=== PATIENT | female | born 1945 | race Caucasian/White ===

== ENCOUNTER 2023-04-04 16:07 | Inpatient (IN) | payer MEDICARE, SELFPAY ==
[2023-04-04] VITALS (41 sets, daily range): BP systolic 105–176; BP diastolic 59–110; PULSE 73–101; RESP 13–26; TEMP 36.6–37.1; O2SAT 59–97; BMI 28.5; BMI 28.2
--- NOTE | 2023-04-04 16:10 | XR_ITS ---
[place] [id number] Patient Name: MARK REYES MRN: [id number] date: 1945 Sex: F Assigned Patient Location: ER Current Patient Location: ED.MAIN Accession/Order Number: [id number] Exam Date: 04/04/2023 16:35 Report Date: 04/04/2023 17:10 At the request of: GINA STEVEN Procedure: XR chest 1V EXAM: XR chest 1V HISTORY: SOB COMPARISON: Chest x-rays 05/27/2015 TECHNIQUE: Portable chest FINDINGS: IMPRESSION: Diffuse alveolar infiltrates. Parenchymal vascular thickening cannot be excluded. No focal consolidation or infiltrate. No pneumothorax or pleural effusion. The heart is not enlarged. Elevation of the right humeral head within the glenoid suggesting a full-thickness rotator cuff tear. No acute osseous abnormality Electronically authenticated by: CARLOS ALBERTO CORRAL Date: 04/04/2023 17:10
--- NOTE | 2023-04-04 16:10 | ECG_ITS ---
[facility] Test Date: 2023-04-04 Pat Name: MARK REYES Department: Room: - Gender: Female Haz Tech: : 1945 Requested By: 1030 Order Number: [id number] Reading MD: NEY MILLER Measurements Intervals [place] Rate: 81 P: -95125 MT: -94183 QRS: -20 QRSD: 88 T: -38 QT: 388 QTc: 425 Interpretive Statements 69354 Atrial fibrillation with aberrant conduction, or ventricular premature complexes 77765 Twave abnormality, possible inferolateral ischemia or digitalis effect 9150 abnormal ECG Electronically Signed On 04-04-2023 19:38:18 EST by NEY MILLER
[2023-04-04 16:30] LABS: Basophils Percent Auto 0.2 % (0.2-2.0); Eosinophils Percent Auto 0.1 % (0.9-7.0); Hematocrit 43.2 % (36.0-48.0); Hemoglobin 14.4 g/dL (12.0-16.0); Immature Granulocytes Abs Auto 0.29 10^3/uL (0.00-0.03); Immature Granulocytes Pct Auto 1.5 % (0.0-0.5); Lymphocytes Absolute Auto 1.3 10^3/uL (1.2-3.8); Lymphocytes Percent Auto 6.9 % (20.5-60.0); Mean Corpuscular HGB Conc 33.3 g/dL (29.9-35.2); Mean Corpuscular Hemoglobin 30.1 pg (26.7-34.0); Mean Corpuscular Volume 90.2 fL (81.0-99.0); Mean Platelet Volume 10.1 fL (9.5-13.5); Monocytes Absolute Auto 0.9 10^3/uL (0.3-0.8); Monocytes Percent Auto 4.5 % (1.7-12.0); Neutrophils Absolute Auto 16.4 10^3/uL (1.4-6.5); Neutrophils Percent Auto 86.8 % (43.0-75.0); Platelet Count 300 10^3/uL (150-450); Red Blood Count 4.79 10^6/uL (4.20-5.40); Red Cell Distribution Width 13.8 % (11.0-15.0); White Blood Count 18.9 10^3/uL (4.0-11.0)
[2023-04-04] MEDS: METHYLPREDNISOLONE SOD SUCC PF 125 MG/2 ML VIAL IVP (16:35)
[2023-04-04 16:39] LABS: SARS-CoV-2 Ag POSITIVE (NEGATIVE)
[2023-04-04 17:24] LABS: Anion Gap 14.2; BUN Creatinine Ratio 26.6; Calcium 8.1 mg/dL (8.5-10.1); Carbon Dioxide 25.5 mmol/L (21.0-32.0); Chloride 100 mmol/L (98-107); Estimated GFR (African America >60 (>=60); Estimated GFR (Non-African Ame >60 (>=60); Glucose 91 mg/dL (74-106); Potassium 3.7 mmol/L (3.5-5.1); Sodium 136 mmol/L (136-145)
[2023-04-04 17:28] LABS: Troponin I High Sensitivity 68.2 pg/mL (4.0-51.3)
[2023-04-04] MEDS: FUROSEMIDE 40 MG/4 ML VIAL IVP (17:29)
--- NOTE | 2023-04-04 17:53 | ECG_ITS ---
[facility] Test Date: 2023-04-04 Pat Name: MARK REYES Department: Room: - Gender: Female Adapted Physical Education Aide: : 1945 Requested By: 1030 Order Number: [id number] Reading MD: NEY MILLER Measurements Intervals [place] Rate: 84 P: -40551 FL: -60494 QRS: -21 QRSD: 86 T: 224 QT: 336 QTc: 377 Interpretive Statements Atrial fibrillation [address] depression 4664 Twave abnormality, possible inferolateral ischemia 7202 Moderate left axis deviation 9150 abnormal ECG Electronically Signed On 04-04-2023 19:37:12 EST by NEY MILLER
[2023-04-04 18:05] LABS: Troponin I High Sensitivity 68.3 pg/mL (4.0-51.3)
--- NOTE | 2023-04-04 18:41 | ED_ITS ---
HPI - General Adult General Chief complaint: Shortness of Breath/Dyspnea Stated complaint: SOB/COVID POSITIVE Time Seen by Provider: 04/04/23 16:10 Source: patient Mode of arrival: Wheelchair Limitations: no limitations History of Present Illness HPI narrative: [age] female presents for shortness of breath. This seems to have developed over the last day. She has chronic obstructive pulmonary disease and is on home oxygen. One week ago today she was admitted at another hospital and had tested positive for coated. They kept her for three days and she was discharged home. She was doing well until the last twenty-four hours. She noticed that her O2 sat was decreasing so she came in here. No fever or productive cough. She has no personal history of congestive heart failure or atrial fibrillation. Related Data Home Medications Medication Instructions Recorded Confirmed amlodipine 10 mg tablet 10 mg PO DAILY 04/04/23 04/04/23 amoxicillin 875 mg-potassium 1 tab PO BID 04/04/23 04/04/23 clavulanate 125 mg tablet atorvastatin 40 mg tablet 20 mg PO DAILY 04/04/23 04/04/23 azithromycin 250 mg tablet 250 mg PO DAILY 04/04/23 04/04/23 clopidogrel 75 mg tablet 75 mg PO DAILY 04/04/23 04/04/23 fluticasone fur. 100 mcg-umeclid 1 inh inhalation Q24H 04/04/23 04/04/23 62.5 mcg-vilant 25 mcg inhalat.powder (Trelegy Ellipta) levalbuterol HCl 1.25 mg/3 mL 1.25 mg inhalation DAILY 04/04/23 04/04/23 solution for nebulization lisinopril 40 mg tablet 40 mg PO DAILY 04/04/23 04/04/23 prednisone 20 mg tablet 20 mg PO BID 04/04/23 04/04/23 sertraline 25 mg tablet 25 mg PO DAILY 04/04/23 04/04/23 Allergies Allergy/AdvReac Type Severity Reaction Status Date / Time acetaminophen [From [place]] Allergy Intermediate Verified 04/04/23 16:12 nitrofurantoin Allergy Intermediate Verified 04/04/23 16:12 [From Macrobid] pentazocine [From [place]] Allergy Intermediate Verified 04/04/23 16:12 Sulfa (Sulfonamide Allergy Intermediate Verified 04/04/23 16:12 Antibiotics) tetracycline Allergy Intermediate Verified 04/04/23 16:12 erythromycin base Allergy Mild Verified 04/04/23 16:12 sulfamethoxazole Allergy Mild Verified 04/04/23 16:12 [From Bactrim] trimethoprim [From Bactrim] Allergy Mild Verified 04/04/23 16:12 Review of Systems ROS Narrative A ten point review of systems is negative except as noted above. Exam Narrative Exam Narrative: Nurses note and vital signs reviewed and patient is not hypoxic. General: The patient is sitting upright and speaking in full sentences. She is not cyanotic. Skin: Warm, dry, no pallor noted. There is no rash noted.no cyanosis Head: Normocephalic, atraumatic Eye: Normal conjunctiva, no drainage Ears, Nose, Mouth, and Throat: oral mucosa is moist. Nares patent. Cardiovascular: irregularly irregular Respiratory: good air movement noted, no rales or rhonchi present Back: non-tender GI: no tenderness to palpation, no masses appreciated. No rebound, guarding, or rigidity noted. Musculoskeletal: The patient has no evidence of calf tenderness, no pitting natalia ma, symmetrical pulses noted bilaterally Neurological: A&O, normal speech Psychiatric: Cooperative Constitutional Vital Signs, click to edit/add: Last Vital Signs Temp 98.8 F 04/04/23 16:08 Pulse 78 04/04/23 17:45 Resp 17 04/04/23 17:45 BP 167/69 H 04/04/23 17:45 Pulse Ox 88 L 04/04/23 17:45 O2 Del Method Vapotherm 04/04/23 16:32 O2 Flow Rate 40 04/04/23 16:32 FiO2 90 04/04/23 16:32 Course Vital Signs Vital signs: Vital Signs Temperature 98.8 F 04/04/23 16:08 Pulse Rate 93 H 04/04/23 16:08 Respiratory Rate 26 H 04/04/23 16:08 Blood Pressure 137/59 04/04/23 16:08 Pulse Oximetry 59 L 04/04/23 16:08 Oxygen Delivery Method Nasal Cannula 04/04/23 16:08 Oxygen Delivery Flow Rate 3 04/04/23 16:08 Temperature 98.8 F 04/04/23 16:08 Pulse Rate 78 04/04/23 17:45 Respiratory Rate 17 04/04/23 17:45 Blood Pressure 167/69 H 04/04/23 17:45 Pulse Oximetry 88 L 04/04/23 17:45 Oxygen Delivery Method Vapotherm 04/04/23 16:32 Oxygen Delivery Flow Rate 40 04/04/23 16:32 Fraction of Inspired Oxygen 90 04/04/23 16:32 Medical Decision Making MDM Narrative Medical decision making narrative: chest x-ray is consistent with pulmonary edema. She is found to be in atrial fibrillation which appears to be new onset. The possibility that the foot Covid causes the atrial fibrillation which then caused the pulmonary edema was discussed with the patient. She was given IV Lasix. Her heart rate is well controlled and she is being admitted to the ICU. Her initial O2 sat was fifty- seven percent on room air. Interestingly, at that point she was not cyanotic and she was speaking in full sentences and was in no distress. Waveform on the monitor with that sat. after Lasix was given she was making good urine and her O2 sat went up to the lower ninety percent range. Differential Diagnosis Differential Diagnosis: pneumonia, congestive heart failure, pulmonary edema, pneumothorax Lab Data Lab results reviewed: Yes I reviewed the patient's lab results Labs: Lab Results 04/04/23 04/04/23 04/04/23 Range/Units 16:18 16:25 16:45 WBC 18.9 H (4.0-11.0) 10^3/uL RBC 4.79 (4.20-5.40) 10^6/uL Hgb 14.4 (12.0-16.0) g/dL Hct 43.2 (36.0-48.0) % MCV 90.2 (81.0-99.0) fL MCH 30.1 (26.7-34.0) pg MCHC 33.3 (29.9-35.2) g/dL RDW 13.8 (11.0-15.0) % Plt Count 300 (150-450) 10^3/uL MPV 10.1 (9.5-13.5) fL Neut % (Auto) 86.8 H (43.0-75.0) % Lymph % (Auto) 6.9 L (20.5-60.0) % [place] % (Auto) 4.5 (1.7-12.0) % Eos % (Auto) 0.1 L (0.9-7.0) % Baso % (Auto) 0.2 (0.2-2.0) % Neut # (Auto) 16.4 H (1.4-6.5) 10^3/uL Lymph # (Auto) 1.3 (1.2-3.8) 10^3/uL [place] # (Auto) 0.9 H (0.3-0.8) 10^3/uL Eos # (Auto) 0.0 (0.0-0.7) 10^3/uL Baso # (Auto) 0.0 (0.0-0.1) 10^3/uL Abs Immat Gran (auto) 0.29 H (0.00-0.03) 10^3/uL Imm/Tot Granulo (auto) 1.5 H (0.0-0.5) % Sodium 136 (136-145) mmol/L Potassium 3.7 (3.5-5.1) mmol/L Chloride 100 (98-107) mmol/L Carbon Dioxide 25.5 (21.0-32.0) mmol/L Anion Gap 14.2 BUN 21.0 H (7.0-18.0) mg/dL Creatinine 0.79 (0.55-1.02) mg/dL Est GFR ( Amer) >60 (>=60) Est GFR (Non-Af Amer) >60 (>=60) BUN/Creatinine Ratio 26.6 Glucose 91 (74-106) mg/dL Calcium 8.1 L (8.5-10.1) mg/dL Troponin I High Sens 68.2 H* (4.0-51.3) pg/mL NT-Pro-B Natriuret Pep 5059.0 H* (<=1800.0) pg/mL SARS-CoV-2 (PCR) Positive A (NEGATIVE) 04/04/23 Range/Units 17:43 WBC (4.0-11.0) 10^3/uL RBC (4.20-5.40) 10^6/uL Hgb (12.0-16.0) g/dL Hct (36.0-48.0) % MCV (81.0-99.0) fL MCH (26.7-34.0) pg MCHC (29.9-35.2) g/dL RDW (11.0-15.0) % Plt Count (150-450) 10^3/uL MPV (9.5-13.5) fL Neut % (Auto) (43.0-75.0) % Lymph % (Auto) (20.5-60.0) % [place] % (Auto) (1.7-12.0) % Eos % (Auto) (0.9-7.0) % Baso % (Auto) (0.2-2.0) % Neut # (Auto) (1.4-6.5) 10^3/uL Lymph # (Auto) (1.2-3.8) 10^3/uL [place] # (Auto) (0.3-0.8) 10^3/uL Eos # (Auto) (0.0-0.7) 10^3/uL Baso # (Auto) (0.0-0.1) 10^3/uL Abs Immat Gran (auto) (0.00-0.03) 10^3/uL Imm/Tot Granulo (auto) (0.0-0.5) % Sodium (136-145) mmol/L Potassium (3.5-5.1) mmol/L Chloride (98-107) mmol/L Carbon Dioxide (21.0-32.0) mmol/L Anion Gap BUN (7.0-18.0) mg/dL Creatinine (0.55-1.02) mg/dL Est GFR ( Amer) (>=60) Est GFR (Non-Af Amer) (>=60) BUN/Creatinine Ratio Glucose (74-106) mg/dL Calcium (8.5-10.1) mg/dL Troponin I High Sens 68.3 H* (4.0-51.3) pg/mL NT-Pro-B Natriuret Pep (<=1800.0) pg/mL SARS-CoV-2 (PCR) (NEGATIVE) Imaging Data chest x-ray : Radiologist's impression: Procedure: XR chest 1V EXAM: XR chest 1V HISTORY: SOB COMPARISON: Chest x-rays 05/27/2015 TECHNIQUE: Portable chest FINDINGS: IMPRESSION: Diffuse alveolar infiltrates. Parenchymal vascular thickening cannot be excluded. No focal consolidation or infiltrate. No pneumothorax or pleural effusion. The heart is not enlarged. Elevation of the right humeral head within the glenoid suggesting a full-thickness rotator cuff tear. No acute osseous abnormality Electronically authenticated by: CARLOS ALBERTO CORRAL Date: 04/04/2023 17:10 Critical Care Time Critical Care Time Total Critical Care Time: 60 Attestation: Due to the high probability of sudden and clinically significant deterioration in the patient's condition he/she required the highest level of my preparedness to intervene urgently I provided critical care time including documentation time, medication orders and management, reevaluation, vital sign assessment, ordering and reviewing of lab tests, ordering and reviewing of x-ray studies, and admission orders. Aggregate critical care time is 60 minutes including only time during which I was engaged in work directly related to his/her care and did not include time spent treating other patients simultaneously. Discharge Plan Discharge Chief Complaint: Shortness of Breath/Dyspnea Clinical Impression: Hypoxemia, Pulmonary edema, Atrial fibrillation, new onset Patient Disposition: Admitted As Inpatient Time of Disposition Decision: 18:45 Condition: Good Prescriptions / Home Meds: No Action lisinopril 40 mg tablet 40 mg PO DAILY clopidogrel 75 mg tablet 75 mg PO DAILY atorvastatin 40 mg tablet 20 mg PO DAILY sertraline 25 mg tablet 25 mg PO DAILY amlodipine 10 mg tablet 10 mg PO DAILY levalbuterol HCl 1.25 mg/3 mL solution for nebulization 1.25 mg INHALATION DAILY azithromycin 250 mg tablet 250 mg PO DAILY Trelegy Ellipta 100-62.5-25 mcg blister with device 1 inh INHALATION Q24H prednisone 20 mg tablet 20 mg PO BID amoxicillin-pot clavulanate 875-125 mg tablet 1 tab PO BID Referrals: TESHA RED [Primary Care Provider] - 1 week
[2023-04-04] MEDS: PANTOPRAZOLE SODIUM 40 MG VIAL IV (20:46)
[2023-04-04] MEDS: ENOXAPARIN SODIUM 40 MG/0.4 ML SYRINGE SUBQ (20:46)
--- NOTE | 2023-04-04 21:09 | W.PM.TELEPN ---
Progress Note: Subjective Subjective Interval history: Patient is a 77 old female with history of HTN, HLD, history of bilateral carotid stenosis s/p bilateral stent placement, left breast cancer s/p mastectomy, and depression who presents with complaint of progressively worsening dyspnea over the past 24 hours. Patient of note reports that she has had URI symptoms including intermittent low-grade fever, cough, and dyspnea for approximately 2 weeks therefore she went to [facility] on 03/28 where she was diagnosed with COVID. Patient reports that she was hospitalized there for 3 days and discharged home with Augmentin and steroids for which she has completed both yesterday and she also was discharged on home O2 of 3 L. She had not had any prior home O2 use prior to that hospitalization. Patient reports that she felt as though she was getting better but states that yesterday she had significantly worsened dyspnea. She reports minimal cough with blood-tinged sputum. Denies any fever or chills, no chest pain or palpitations, denies any dizziness, denies any nausea, vomiting, diarrhea. Given the severity of her symptoms, patient presented here to the ED. In the ED patient reportedly had an O2 sat of 57% on room air yet was able to speak in full sentences and no signs of confusion. Per ED physician, O2 sat was deemed accurate with good waveform. Patient has since been transitioned to Vapotherm at 40 L, 90% FiO2 with O2 sat low 90s. Laboratory parameters of significance include WBC of 18.9, calcium 8.1, initial troponin 68.2 and repeat stable at 68.3, BNP 5059 and rest of labs within normal limits including electrolytes and kidney function as well as normal H&H. Patient again did test positive for COVID today. CXR with diffuse alveolar infiltrates, no focal consolidation or effusion, no PTX. Also noted possible full-thickness rotator cuff tear at right humeral head. EKG was noted for A-fib and minimal ST depression inferiorly, rate of 81. Patient was treated in the ED with Lasix 40 mg IV and Solu-Medrol 125 mg. She currently appears quite comfortable on the Vapotherm without any conversational dyspnea and speaking full sentences. patient denies any prior history of A-fib nor CHF. She denies any recent weight gain and denies any leg swelling. She does not have establish care with cardiology. She did have a stress test several years ago at [facility] for which she thinks may have been abnormal but unable to elaborate further. She has never required any cardiac catheterization. Patient is being admitted to the hospitalist service for further management. Exam Constitutional Vital Signs, click to edit/add: Last Vital Signs Temp 97.9 F 04/04/23 19:32 Pulse 80 04/04/23 20:00 Resp 23 04/04/23 20:00 BP 128/92 H 04/04/23 19:32 Pulse Ox 92 L 04/04/23 20:00 O2 Del Method Vapotherm 04/04/23 16:32 O2 Flow Rate 40 04/04/23 20:00 FiO2 90 04/04/23 20:00 Common normals: oriented x3 General appearance: cooperative and comfortable HENMT Common normals: normocephalic Head and scalp: atraumatic Eye Common normals: PERRL General eye: normal appearance of both eyes Chest Common normals: inspection of chest normal Respiratory Effort & inspection: able to speak in complete sentences Auscultation: rhonchi lower bilaterally Cardio Rhythm: abnormal rhythm irregularly irregular GI Common normals: Normal to inspection, nondistended, normoactive bowel sounds present Palpation: soft Extremity Common normals: normal to inspection, full ROM and no clubbing, cyanosis or edema Neuro Common normals: oriented x3, moves all extremities and no focal motor deficits Psych Common normals: mental status grossly normal and cooperative Insight: insight good Judgement: judgment good Progress Note: Objective Labs Labs: Short CBC 04/04/23 Range/Units 16:18 WBC 18.9 H (4.0-11.0) 10^3/uL Hgb 14.4 (12.0-16.0) g/dL Hct 43.2 (36.0-48.0) % Plt Count 300 (150-450) 10^3/uL BMP 04/04/23 16:18 Sodium 136 Potassium 3.7 Chloride 100 Carbon Dioxide 25.5 BUN 21.0 H Creatinine 0.79 Glucose 91 Calcium 8.1 L ECG Interpretation: ekg afib min st depression inferiorly, rate 81 Imaging Chest x-ray: Radiologist's impression: cxr diffuse alveolar infiltrate. no focal consolidation infiltrate or pleural effusion. Possible full-thickness rotator cuff tear at right humeral head Progress Note: A&P Assessment and Plan (1) Hypoxemia: (2) Atrial fibrillation, new onset: (3) COPD (chronic obstructive pulmonary disease): (4) Elevated cholesterol: (5) HTN (hypertension): Plan Acute on chronic hypoxic respiratory failure/COPD exacerbation: Patient being admitted to the ICU. Continue Vapotherm, wean O2 as tolerated. Check ABG. Recently initiated on home O2 after last hospitalization earlier this month at 3 L. IV steroids, empiric antibiotics. Check D-dimer, if elevated will consider CTA of chest. As needed nebs, antitussive. Empiric Vanco, Zosyn given recent hospitalization. Check MRSA screen and if negative then can quickly de-escalate antibiotics. COVID-positive infection: Diagnosed 03/28 at [facility] where she was hospitalized for 3 days and discharged home with Augmentin, steroids, and initiated on home O2 3 L. IV steroids ordered. No indication for remdesivir as she is out of the window given duration of symptoms. Breathing treatment, RT protocol. Antitussives. Add vitamin C, D, zinc. Elevated BNP: BNP 5059, no prior history of CHF. No obvious CHF seen on CXR and no peripheral edema on exam. Received Lasix 40 mg IV in ED with improvement, will continue daily for now. Check echo. I/O, daily weight, FR 1500/day Elevated troponin/abnormal EKG: Patient denies any chest pain, possible demand ischemia in the setting of severe hypoxia, new onset A-fib, and COVID infection.. Maintain on telemetry. Serial troponin. Check echo, EKG in a.m. May need to discuss with cardiology pending trend New onset A-fib: Currently rate controlled. Noted in the setting of severe hypoxia, COVID, COPD exacerbation. Check TSH, echo. [id number] score 4?5 for age, gender, HTN +/- poss chf. D/W patient at length with regards to anticoagulation and stroke risk. She is in agreement with initiation of Eliquis Leukocytosis: Suspect secondary to recent steroids, just completed course yesterday. Currently afebrile. Monitor for now with repeat labs in a.m. Possible right rotator cuff tear: Incidental finding on CXR. Once respiratory status improved, may benefit from further imaging and Ortho outpatient referral HTN: Continue home regimen amlodipine, lisinopril HLD: Continue Lipitor Depression: Continue Zoloft CODE STATUS full code. Patient does have a copy of her living will with her which was reviewed during evaluation with RN. Patient was to remain full code and agreeable to intubation if necessary. Per her well and desires, she would not want life-sustaining measures taken if she is not getting better but is agreeable to initial intubation DVT prophylaxis initiation of Eliquis Telemedicine Attestation Telemedicine Attestation I conducted this encounter from [MD] via secure live, [id number] video conference with the patient, located at [facility] with [Dorothea RN]. Prior to the interview, the risks and benefits of telemedicine were discussed with the patient and verbal consent was obtained.
[2023-04-04 21:30] LABS: C Reactive Protein 11.99 mg/dL (<=0.30); Lactate/Lactic Acid 1.5 mmol/L (0.4-2.0)
[2023-04-04 21:34] LABS: Troponin I High Sensitivity 62.6 pg/mL (4.0-51.3)
--- NOTE | 2023-04-04 21:41 | PC.NURSE ---
increased vapotherm to 100% at this time. Pt remains resting in bed. no visualized tachypnea or resp distress
[2023-04-05] VITALS (39 sets, daily range): BP systolic 121–154; BP diastolic 57–114; PULSE 32–107; RESP 14–24; TEMP 36.2–36.7; O2SAT 82–97
[2023-04-05] MEDS: VANCOMYCIN HCL 750 MG in 0.9 % SODIUM CHLORIDE 250 ML 250 MG IV ×2 (04:25→16:14)
[2023-04-05] MEDS: METHYLPREDNISOLONE SOD SUCC PF 40 MG/ML VIAL IVP ×2 (04:26→05:35)
[2023-04-05] MEDS: IPRATROPIUM/ALBUTEROL SULFATE 3 ML AMPUL.NEB IH ×5 (04:42→23:41)
[2023-04-05 05:04] LABS: ABG PCO2 35.1 mmHg (35.0-45.0); Base Excess ABG 2.7 mmol/L (-2.0-2.0); HCO3 ABG 26.2 mmol/L (22.0-26.0); PO2 ABG 89.1 mmHg (80.0-100.0); pH ABG 7.481 (7.350-7.450)
[2023-04-05 05:05] LABS: Allen Test POSITIVE (POSITIVE); Fractionated Inspired Oxygen 90 %; Liters per Minute 40; O2 Mode VAPO THERM; Oxygen Saturation ABG 97.1 %; Puncture Site L RADIAL
[2023-04-05 05:11] LABS: Hematocrit 40.6 % (36.0-48.0); Hemoglobin 13.3 g/dL (12.0-16.0); Mean Corpuscular HGB Conc 32.8 g/dL (29.9-35.2); Mean Corpuscular Hemoglobin 29.8 pg (26.7-34.0); Mean Corpuscular Volume 90.8 fL (81.0-99.0); Mean Platelet Volume 10.3 fL (9.5-13.5); Platelet Count 261 10^3/uL (150-450); Red Blood Count 4.47 10^6/uL (4.20-5.40); Red Cell Distribution Width 13.6 % (11.0-15.0); White Blood Count 11.5 10^3/uL (4.0-11.0)
[2023-04-05] MEDS: PIPERACILLIN SODIUM/TAZOBACTAM 3.375 GM in 0.9 % SODIUM CHLORIDE 50 ML IV ×3 (05:35→20:30)
[2023-04-05 05:43] LABS: INR 1.09; Prothrombin Time 11.5 sec (9.0-11.6)
[2023-04-05 05:48] LABS: D Dimer 1.21 mg/L FEU (<=0.59)
[2023-04-05 05:53] LABS: Anion Gap 12.2; BUN Creatinine Ratio 25.5; Carbon Dioxide 26.6 mmol/L (21.0-32.0); Chloride 102 mmol/L (98-107); Estimated GFR (African America >60 (>=60); Estimated GFR (Non-African Ame 53 (>=60); Glucose 224 mg/dL (74-106); Magnesium 2.3 mg/dL (1.8-2.4); Sodium 138 mmol/L (136-145); Troponin I High Sensitivity 48.3 pg/mL (4.0-51.3)
--- NOTE | 2023-04-05 06:00 | ECG_ITS ---
[facility] Test Date: 2023-04-05 Pat Name: MARK REYES Department: Room: 2731 Gender: Female Respiratory Technician: : 1945 Requested By: TERESA GREWAL Order Number: [id number] Reading MD: TERESA GREWAL Measurements Intervals [place] Rate: 73 P: -66877 NM: -12891 QRS: -3 QRSD: 82 T: 270 QT: 298 QTc: 324 Interpretive Statements 1210 Atrial fibrillation 24521 Nonspecific Twave abnormality, probably digitalis effect 8305 Short QTc interval 9150 abnormal ECG Compared to ECG 04/04/2023 17:55:18 Aberrant conduction of supraventricular beat(s) no longer present Possible ischemia no longer present Electronically Signed On 04-07-2023 5:26:43 EST by TERESA GREWAL
--- NOTE | 2023-04-05 06:08 | CA_ITS ---
Patient Name Site Name MARK REYES [facility] Account No Medical Record Number Age Sex Date Time [id number] [facility]:[id number] F 04/05/2023 07:50 At the Request Of SHMUEL WALSH ECHOCARDIOGRAM REPORT PROCEDURE: CA ECHO DOPPLER COMPLETE INDICATIONS: elev trop, new onset afib, elev bnp, Covid Positive COMPARISON: None. DESCRIPTION: COMPLETE ECHOCARDIOGRAM Real-time transthoracic echocardiography with 2D, M-mode, spectral and color flow Doppler performed. QUALITY: Technical quality was good. LEFT VENTRICLE: Normal chamber size. Borderline left ventricular hypertrophy. Global left ventricular systolic function is normal. LV EF: Estimated left ventricular ejection fraction is 55-60%. DIASTOLIC: Grade II diastolic dysfunction. ATRIAL SEPTUM: LEFT ATRIUM: Moderate dilatation. RIGHT ATRIUM: Mild dilatation. RIGHT VENTRICLE: Normal chamber size. Normal right ventricular systolic function. TRICUSPID VALVE: Normal mobility and thickness. No stenosis with mild to moderate regurgitation. Severe pulmonary hypertension. RVSP 61mmHg MITRAL VALVE: Normal mobility and thickness. No evidence of mitral valve stenosis. There is no mitral annular calcification. Moderate mitral regurgitation. AORTIC VALVE: Normal trileaflet appearance. Mildly calcified aortic valve. Mildly diminished mobility. No aortic valve stenosis. No aortic regurgitation. AORTIC ROOT: Normal diameter and appearance. PULMONIC VALVE: Normal thickness and mobility. No stenosis. Trivial regurgitation. PERICARDIUM: No evidence of pericardial effusion. IVC: Collapses with inspirations. Mild dilatation measuring 2.1 cm. PLEURA: CONCLUSION: 1. Left ventricular systolic function is normal. LVEF is 55 to 60%. 2. Normal right ventricular size and systolic function. 3. Grade 2 diastolic dysfunction. 4. Mild to moderate biatrial dilatation. 5. Moderate mitral regurgitation. 6. Mild to moderate tricuspid regurgitation. 7. Severely elevated right-sided pressures. RVSP 61 mmHg. Adult Echocardiography Procedure Report Left Ventricle LVEDD (3.7 - 5.6 cm): 4.65 cm LVESD (2.2 - 4.0 cm): 3.40 cm LVIVS thickness (0.6 - 1.2 cm): 0.99 cm LVPW thickness (0.5 - 1.0 cm): 1.02 cm e': 0.11 m/s E - e': 11.07 LVOT Max Gradient: 2.04 mm[Hg], 2.37 mm[Hg] LVOT Area (cm2): 0.74 m/s Peak Velocity (LVOT): 0.71 m/s, 0.77 m/s Mean Velocity (LVOT): 0.49 m/s LVOT Diameter 2.07 cm Left Ventricular Ejection Fraction: 55-60 % Left Atrium LA Volume Index (2D A2C): 48.66 ml/m2 Left Atrium Systolic Dimension: 4.04 cm Mitral Valve MV E to A Ratio: 2.39 Mitral Valve A-Wave Peak Velocity: 0.50 m/s Mitral Valve E-Wave Peak Velocity: 1.19 m/s Right Ventricle RV Internal Diastolic Dimension: 3.32 cm Aorta AO Root Diam: 2.69 cm Aortic Valve AoV Area (Peak Usama): 1.48 cm2, 1.43 cm2 AoV Area (VTI): 1.48 cm2, 1.50 cm2 Peak Velocity(Antegrade Flow): 1.69 m/s Peak Gradient(Antegrade Flow): 11.39 mm[Hg] Mean Velocity(Antegrade Flow): 1.10 m/s Mean Gradient(Antegrade Flow): 5.47 mm[Hg] Velocity Time Integral: 34.27 cm Tricuspid Valve Peak Velocity (Regurgitant Flow): 3.33 m/s, 3.63 m/s, 3.59 m/s, 3.45 m/s Pulmonic Valve Mean Gradient: 1.25 mm[Hg] Mean Velocity: 0.51 m/s Peak Velocity: 0.77 m/s, 0.94 m/s Peak Gradient: 2.35 mm[Hg], 3.50 mm[Hg] Right Atrium Right Atrium Systolic Pressure: 45.58 ml, 45.58 ml Dictated by: Keegan Oneill M.D. on 04/07/2023 at 08:17 Approved by: Keegan Oneill M.D. on 04/07/2023 at 08:21
--- NOTE | 2023-04-05 06:14 | CT_ITS ---
[address] [address] Patient Name: MARK REYES MRN: [facility]:[id number] date: 1945 Sex: F Assigned Patient Location: ICU Current Patient Location: ICU Accession/Order Number: [id number] Exam Date: 04/05/2023 13:15 Report Date: 04/05/2023 14:24 At the request of: EBEN VALENTIN Procedure: CT angio chest EXAM: CT angio chest HISTORY: elevated D dimer, sob, r/o PE COMPARISON: 05/25/2011 TECHNIQUE: CT chest with intravenous contrast was performed with timing for the evaluation for pulmonary arteries. Multiplanar reformats were performed. MIP (maximum intensity projection) images or 3D post processing was performed. Dose reduction techniques were achieved by using automated exposure control and/or adjustment of mA and/or kV according to patient size and/or use of iterative reconstruction technique. FINDINGS: Lungs: There is bilateral centrilobular emphysema. There are bilateral small pleural effusions with bibasilar atelectasis. No pneumothorax. There are patchy upper lobes and middle lobe groundglass attention and interlobular septal thickening. Findings can be due to pulmonary edema and heart failure. Airways: Normal. Mediastinum: No adenopathy. Aorta: No aneurysm. Cardiac: Normal size. There is reflux of contrast into the IVC, nonspecific and can be due to increased right heart pressure. Correlation with echocardiography is recommended. No pericardial effusion. Pulmonary vasculature: Diagnostic opacification of pulmonary arteries without evidence of pulmonary embolus. Normal morphology. Bones: No acute bony abnormality. Axilla: No adenopathy. Thyroid gland: No abnormality demonstrated on provided imaging. Soft tissues: Unremarkable. Upper abdomen: Small bilateral hernia. Additional findings: None. CT/CT angio chest IMPRESSION: No evidence of pulmonary embolus. Reflux of contrast into the IVC, nonspecific and can be due to increased right heart pressure. Correlation with echocardiography is recommended. Bilateral centrilobular emphysema, bilateral small pleural effusions with bibasilar atelectasis and patchy upper lobes and middle lobe groundglass attention and interlobular septal thickening. Findings can be due to pulmonary edema and heart failure. Electronically authenticated by: SAVAGE SOTO Date: 04/05/2023 14:24
[2023-04-05 06:17] LABS: Potassium 2.8 mmol/L (3.5-5.1)
[2023-04-05 06:18] LABS: TSH W/ REFLEX FT4 0.096 (0.358-3.740)
[2023-04-05 07:06] LABS: Monocytes Absolute Manual 0.11 10^3/uL (0.30-0.80); Segmented Neut Absolute Manual 10.58 10^3/uL (1.4-6.5)
[2023-04-05] MEDS: AMLODIPINE BESYLATE 5 MG TABLET 10 MG PO (08:25)
[2023-04-05] MEDS: ZINC GLUCONATE 50 MG TABLET PO (08:25)
[2023-04-05] MEDS: LISINOPRIL 20 MG TABLET 40 MG PO (08:25)
[2023-04-05] MEDS: SERTRALINE HCL 50 MG TABLET 25 MG PO (08:25)
[2023-04-05] MEDS: POTASSIUM CHLORIDE 40 MEQ in 0.9 % SODIUM CHLORIDE 250 ML 67.5 MEQ IV (08:25)
[2023-04-05] MEDS: APIXABAN 5 MG TABLET PO ×2 (08:25→20:20)
[2023-04-05] MEDS: POTASSIUM CHLORIDE 10 MEQ ER TABLET 40 MEQ PO ×2 (08:25→16:15)
[2023-04-05] MEDS: ASCORBIC ACID 500 MG TABLET PO (08:25)
[2023-04-05] MEDS: ATORVASTATIN CALCIUM 20 MG TABLET PO (08:25)
[2023-04-05] MEDS: CHOLECALCIFEROL (VITAMIN D3) 125 MCG/5000 UNIT TABLET PO (08:25)
--- NOTE | 2023-04-05 09:18 | P.HP_ITS ---
Agree with Dx as outlined above. Continue with current management Rehab recommended for patient safety H&P: HPI History of Present Illness Chief complaint: SOB/DYSPNEA Narrative: Date/time of exam: 04/05/23829 This is a 77-year-old female patient with a past medical history as outlined below including chronic COPD not on home O2 supplementation, HTN, HLD, Carotid stenosis s/p bilat stent placement, L breast CA s/p mastectomy, and depression; who presented to the ED last night c/o of severe SOB. She reports URI symptoms for approximately 2 weeks with low-grade fevers, cough, and dyspnea. She was admitted to the [facility] on 03/28/2023 and was diagnosed with COVID 19. She was hospitalized for 3 days and discharged home on Augmentin, steroids, and home O2 at 2 L. Prior to that she has not required any home O2 supplementation. She reports that she only felt a little improved at the time of discharge and 2 days after discharge her symptoms began to worsen again. Over the last 48 hours she has suffered with severe dyspnea and then began to noticed blood-tinged sputum when coughing. On arrival to the ED the patient had an O2 sat of 57% on room air but was noted to have normal mentation and able to speak in full sentences. The ED physician did document that the O2 sat was deemed accurate with good waveform on pulse oximetry. Work-up in the ED revealed diffuse alveolar infiltrate but no focal consolidation. Leukocytosis (18.9) which may reflect glucocorticoid ad ministration as the patient has been afebrile for the last week. Elevated troponins were noted but remained flat x4. EKG was noted for A-fib which is apparently new for this patient. There was some concern on the chest x-ray for pulmonary edema and she was treated with IVP Lasix with moderate urine output and some improvement in symptoms. There was also concern for acute COPD exacerbation due to the patient's remote tobacco use history and chronic COPD at baseline with wheezing on exam. She was given high-dose IVP Solu-Medrol in the ED and admitted to the hospitalist service last night. At the time of my exam this morning the patient is resting comfortably in bed with some dyspnea noted but able to talk in complete sentences. She is on high flow Vapotherm O2 delivery at 90% FIO2 with her O2 sats hovering around 90%. She denies any chest pain, pleuritic pain, palpitations, dizziness, N/V/D, abdominal pain, or any other acute symptoms other than noted above. She denies any history of a-fib, but states that she has had an intermittent irregularity that No one seemed very concerned about . A D-dimer resulted at 1.21 this morning which is quite elevated. We will obtain a CTA of the chest to rule out PE and treat as needed pending those results. We have also ordered a 2D echo and a cardiology consult due to the patient's new onset A-fib with controlled rate. She denies any recent weight gain or LE swelling. Her K+ level dropped this morning to 2.8. We will replete with PO and IV KCL and recheck a BMP at 1300. ADDENDUM 1045: Pt O2 delivery converted to BiPAP for transport to CT department (portable vapotherm not available). Pt did not tolerate well and quickly desaturated to low 80s w/ respiratory distress on 100% FIO2, 18/8. Placed back on Vapotherm and pt's respiratory distress resolved. Sats 88-91%. Unable to obtain CTA at this time. Treat empirically for PE w/ therapeutic dosing of heparin gtt. Review of Systems ROS Status of ROS 10 or more systems reviewed and unremarkable except as noted in history and below [facility] Medical History Breast cancer ?C50.919 - Malignant neoplasm of unspecified site of unspecified female breast (ICD-10) COPD (chronic obstructive pulmonary disease) ?J44.9 - Chronic obstructive pulmonary disease, unspecified (ICD-10) Elevated cholesterol ?E78.00 - Pure hypercholesterolemia, unspecified (ICD-10) History of home oxygen therapy (Unknown) ?Z99.81 - Dependence on supplemental oxygen (ICD-10) HTN (hypertension) ?I10 - Essential (primary) hypertension (ICD-10) Internal carotid artery stent present (Unknown) ?Z95.828 - Presence of other vascular implants and grafts (ICD-10) Occlusion and stenosis of bilateral carotid arteries ?I65.23 - Occlusion and stenosis of bilateral carotid arteries (ICD-10) Stroke ?I63.9 - Cerebral infarction, unspecified (ICD-10) Subclavian arterial stenosis ?I77.1 - Stricture of artery (ICD-10) Surgical History H/O mastectomy ?Z90.10 - Acquired absence of unspecified breast and nipple (ICD-10) Meds Home Medications and Allergies Home Medications Medication Instructions Recorded Confirmed Type amlodipine 10 mg tablet 10 mg PO DAILY 04/04/23 04/04/23 History clopidogrel 75 mg tablet 75 mg PO DAILY 04/04/23 04/04/23 History fluticasone fur. 100 mcg-umeclid 1 inh inhalation Q24H 04/04/23 04/04/23 History 62.5 mcg-vilant 25 mcg inhalat.powder (Trelegy Ellipta) levalbuterol HCl 1.25 mg/3 mL 1.25 mg inhalation Q6H PRN 04/04/23 04/05/23 History solution for nebulization shortness of breath or wheezing lisinopril 40 mg tablet 40 mg PO DAILY 04/04/23 04/04/23 History sertraline 25 mg tablet 25 mg PO DAILY 04/04/23 04/04/23 History alendronate 70 mg tablet 70 mg PO QWEEK 04/05/23 04/05/23 History atorvastatin 80 mg tablet (Lipitor) 80 mg PO QPM 04/05/23 04/05/23 History bisoprolol fumarate 5 mg tablet 5 mg PO DAILY 04/05/23 04/05/23 History Allergies Allergy/AdvReac Type Severity Reaction Status Date / Time acetaminophen [From Talacen] Allergy Intermediate Verified 04/04/23 16:12 nitrofurantoin Allergy Intermediate Verified 04/04/23 16:12 [From Macrobid] pentazocine [From Talacen] Allergy Intermediate Verified 04/04/23 16:12 Sulfa (Sulfonamide Allergy Intermediate Verified 04/04/23 16:12 Antibiotics) tetracycline Allergy Intermediate Verified 04/04/23 16:12 erythromycin base Allergy Mild Verified 04/04/23 16:12 sulfamethoxazole Allergy Mild Verified 04/04/23 16:12 [From Bactrim] trimethoprim [From Bactrim] Allergy Mild Verified 04/04/23 16:12 Exam Constitutional Vital Signs, click to edit/add: Last Vital Signs Temp 97.9 F 04/04/23 19:32 Pulse 70 04/05/23 04:42 Resp 20 04/05/23 04:42 BP 140/60 04/05/23 04:29 Pulse Ox 93 L 04/05/23 04:42 O2 Del Method Vapotherm 04/05/23 04:42 O2 Flow Rate 40 04/05/23 04:42 FiO2 90 04/05/23 04:42 Common normals: oriented x3, alert and well nourished General appearance: cooperative Orientation/consciousness: Yes awake HENMT Common normals: normocephalic, head/scalp atraumatic, hearing grossly normal bilaterally, external nose normal and moist oral mucous membranes Eye Common normals: PERRL, EOMs intact bilaterally, conjunctivae normal and no scleral icterus Alignment: alignment normal Eyelid: eyelids normal Neck & C-Spine Common normals: full ROM, supple and no JVD Thyroid: solitary palpable nodule on the left Chest Common normals: inspection of chest normal Chest: symmetrical chest wall rise Respiratory Common normals: normal respiratory effort, no retractions and no use of accessory muscles Effort & inspection: able to speak in complete sentences Auscultation: rhonchi (BLL, RML) and wheezes (EE scattered throughout) Cardio Common normals: no JVD, regular rate, S1 normal heart sound, S2 normal heart sound, no gallops, no clicks, no rub and peripheral pulses 2+ throughout Rhythm: abnormal rhythm irregularly irregular Heart sounds: murmur (HSM 2/6) GI Common normals: Normal to inspection, nondistended, normoactive bowel sounds present, soft to palpation, non-tender, no hepatosplenomegaly, no masses and no bruits Bladder/kidney exam: bladder normal to palpation Extremity Common normals: normal capillary refill and no pedal edema General: normal exam except as noted; no cyanosis Neuro Fuentes Coma Scale: GCS not evaluated Common normals: oriented x3, CN's II-XII intact bilaterally, moves all extremities, no focal motor deficits and no sensory deficits noted Sensorium/orientation: awake and alert Speech: speech normal Psych Common normals: mental status grossly normal, thought process normal, affect normal and activity/motor behavior normal Results Labs Labs: Short CBC 04/04/23 04/05/23 Range/Units 16:18 04:06 WBC 18.9 H 11.5 H (4.0-11.0) 10^3/uL Hgb 14.4 13.3 (12.0-16.0) g/dL Hct 43.2 40.6 (36.0-48.0) % Plt Count 300 261 (150-450) 10^3/uL BMP 04/04/23 04/05/23 16:18 04:06 Sodium 136 138 Potassium 3.7 2.8 L* Chloride 100 102 Carbon Dioxide 25.5 26.6 BUN 21.0 H 26.0 H Creatinine 0.79 1.02 Glucose 91 224 H Calcium 8.1 L 8.0 L ABG ABG results: 04/05/23 04:53 ABG pH 7.481 H ABG pCO2 35.1 ABG pO2 89.1 ABG HCO3 26.2 H ABG O2 Saturation 97.1 ABG Base Excess 2.7 H Pulse Oximetry Attestation: I have reviewed the pertinent pulse oximetry results. Assessment and Plan Assessment and Plan (1) Acute hypoxemic respiratory failure: Assessment and Plan: ACUTE * Adm inpatient * Multifactorial: Suspected PE, COVID 19 viral PNA w/ possible secondary bacterial process, Acute COPD exacerbation, New onset A-fib w/ decompensation and pulmonary edema * O2 to keep sats above 88% - currently requiring Vapotherm high flow delivery with 90% FIO2. * Low threshold to change to BiPAP pending clinical course * D-dimer elevated at 1.21 this morning. CTA chest pending. * Initiated on Eliquis 5mg BID for a-fib/CVA prevention, but if PE is found will have to increase to 10mg BID x 7 days * Pt was not requiring O2 supplementation prior to her recent Dx with COVID 19 on 03/28/23 * Consider pulmonology consult pending clinical course and CTA result * See COPD, COVID below (2) Atrial fibrillation, new onset: Assessment and Plan: ACUTE * No known a-fib history * Likely 2/2 acute pulmonary process and/or possible hyperthyroidism (suppressed TSH 0.096) * Mild hypokalemia may also be contributing but onset of a-fib predated onset of low K+ * Mag WNL * 2D Echo today to r/o new WM or valvular abn * Serial HsTnI mildly elevated but flat - likely reflects demand ischemia * Cardiology consult - we appreciate their assistance with this patient * Rate currently controlled - pt already on bisoprolol at baseline. Defer medication adjustments to cardiology * Eliquis 5mg BID initiated (3) COPD with acute exacerbation: Assessment and Plan: ACUTE * Pt w/ known COPD hx * COPD usually well controlled on Trelegy. * No baseline O2 supplementation * Significant EE wheezing on exam throughout * Solumedrol 125 mg IVP x 1 in ED, then 40 mg divided doses. May increase if CTA chest negative for PE * Continue Vapotherm high flow to keep sats between 88-93%. Titrate down when able * IVPB Zosyn/Vanco added for underlying bronchitis & possible secondary pneumonia - see covid * Duoneb scheduled q4h, plus PRN dosing * Guaifenisen BID & OPEP for sputum mobilization (4) Pulmonary edema: Assessment and Plan: ACUTE * Pulmonary edema suggested on CXR in ED * Lasix 40 mg IVP given in ED - Neg 1.5 Liters w/ moderate output * No peripheral edema or weight gain * 2D Echo today * Consider further diuretic administration pending echo result and cardiology recommendation (5) COVID-19: Assessment and Plan: SUB-ACUTE * Dx 03/28/23 at [facility] w/ 3 day admission * Paxlovid/Remdesivir not indicated - outside the therapeutic window * OPEP * Serial CXR * Suspect secondary bacterial process * IVPB Vanco & Zosyn * supportive care (6) Hypokalemia: Assessment and Plan: ACUTE * k+ 2.8 on AM labs * Replete w/ 40 KCL PO q6h x 2 doses plus 40 KCL IVPB x 1 * Repeat BMP at 1300 * Mag lvl WNL (7) HTN (hypertension): Assessment and Plan: CHRONIC * Continue home amlodipine and bisoprolol/formulary equivalent (8) Stroke: Assessment and Plan: CHRONIC * s/p bilateral carotid stent placement in Jul 2022 * Continue plavix * monitor for bleeding w/ concurrent eliquis admin
[2023-04-05] MEDS: CLOPIDOGREL BISULFATE 75 MG TABLET PO (09:30)
[2023-04-05] MEDS: METOPROLOL TARTRATE 50 MG TABLET PO ×2 (09:30→20:20)
[2023-04-05] MEDS: GUAIFENESIN 600 MG TAB.ER.12H PO ×2 (09:35→20:21)
--- NOTE | 2023-04-05 09:45 | CM.NOTE ---
Rounds made with Dr. Felix. Continues on Vapotherm. No plan for discharge today.
--- NOTE | 2023-04-05 10:01 | CM.NOTE ---
Important Message From Medicare discussed with pt, pt verbalizes understanding and signs paper. Original given to pt and copy placed on pt's chart.
[2023-04-05] MEDS: BUDESONIDE 0.5 MG/2 ML AMPULE NEB IH ×2 (10:53→23:41)
--- NOTE | 2023-04-05 11:29 | RESP.RT ---
Attempted BiPap, pt did not tolerate for even 1 min
[2023-04-05] MEDS: METHYLPREDNISOLONE SOD SUCC PF 125 MG/2 ML VIAL IVP ×3 (12:07→23:00)
[2023-04-05] MEDS: HEPARIN SODIUM,PORCINE/D5W 25,000 UNIT/500 ML IV.SOLN 23.832 UNIT IV (12:07)
[2023-04-05 12:37] LABS: A. calcoaceticus-baumannii Cpx NOT DETECTED (NOT DETECTE); Bacteroides fragilis NOT DETECTED (NOT DETECTE); Candida albicans NOT DETECTED (NOT DETECTE); Candida auris NOT DETECTED (NOT DETECTE); Candida glabrata NOT DETECTED (NOT DETECTE); Candida krusei NOT DETECTED (NOT DETECTE); Candida parapsilosis NOT DETECTED (NOT DETECTE); Candida tropicalis NOT DETECTED (NOT DETECTE); Cryptococcus neoformans/gattii NOT DETECTED (NOT DETECTE); Enterobacter cloacae complex NOT DETECTED (NOT DETECTE); Enterobacterales NOT DETECTED (NOT DETECTE); Enterococcus faecalis NOT DETECTED (NOT DETECTE); Enterococcus faecium NOT DETECTED (NOT DETECTE); Haemophilus influenzae NOT DETECTED (NOT DETECTE); Klebsiella aerogenes NOT DETECTED (NOT DETECTE); Klebsiella pneumoniae group NOT DETECTED (NOT DETECTE); Listeria monocytogenes NOT DETECTED (NOT DETECTE); Neisseria meningitidis NOT DETECTED (NOT DETECTE); Proteus spp. NOT DETECTED (NOT DETECTE); Pseudomonas aeruginosa NOT DETECTED (NOT DETECTE); Salmonella spp. NOT DETECTED (NOT DETECTE); Serratia marcescens NOT DETECTED (NOT DETECTE); Staphylococcus lugdunensis NOT DETECTED (NOT DETECTE); Stenotrophomonas maltophilia NOT DETECTED (NOT DETECTE); Streptococcus agalactiae NOT DETECTED (NOT DETECTE); Streptococcus pneumoniae NOT DETECTED (NOT DETECTE); Streptococcus pyogenes NOT DETECTED (NOT DETECTE); Streptococcus spp. NOT DETECTED (NOT DETECTE)
--- NOTE | 2023-04-05 13:00 | PM.CACN ---
History of Present Illness History of Present Illness Consult date: 04/05/23 Requesting physician: Radha Pond Consult reason: atrial fibrillation Chief complaint: SOB/DYSPNEA Narrative: Patient recently admitted for SOB/dyspnea. She was find to have COVID19 and new onset AF RVR. She does typically require O2 at home but has been requiring high flow inpatient. She was found to have elevated D-dimer, and BNP. She had ECHO done 04/05/23 and prelim results show RV strain. She is going for CT chest this afternoon to rule out PE. She is fairly compensated on exam without LE edema, she is dyspneic though. When reviewing telemtry and ECG she does have afib with controlled ventricular rate, some leads do like atrial flutter. Rate is very regular which makes me suspicious of atrial flutter. Given she has not had high VR would be mindful for conversion pauses or bradycardia, may have underlying AV node disease. PMH:chronic COPD not on home O2 supplementation, HTN, HLD, Carotid stenosis s/p bilat stent placement, L breast CA s/p mastectomy, and depression Review of Systems ROS Constitutional Reports: fatigue Cardiovascular Denies: palpitations, edema, swelling of feet/ankles or lightheadedness Respiratory Reports: shortness of breath, cough and wheezing [facility] Medical History (Updated 04/20/23 @ 13:03 by Jefry Morton MD) Chronic heart failure with preserved ejection fraction (HFpEF) ?I50.32 - Chronic diastolic (congestive) heart failure (ICD-10) Peripheral vascular disease ?I73.9 - Peripheral vascular disease, unspecified (ICD-10) Acute on chronic heart failure with preserved ejection fraction (HFpEF) ?I50.33 - Acute on chronic diastolic (congestive) heart failure (ICD-10) Hypokalemia ?E87.6 - Hypokalemia (ICD-10) COPD with acute exacerbation ?J44.1 - Chronic obstructive pulmonary disease with (acute) exacerbation (ICD-10) COVID-19 ?U07.1 - COVID-19 (ICD-10) Acute hypoxemic respiratory failure ?J96.01 - Acute respiratory failure with hypoxia (ICD-10) COPD (chronic obstructive pulmonary disease) ?J44.9 - Chronic obstructive pulmonary disease, unspecified (ICD-10) Elevated cholesterol ?E78.00 - Pure hypercholesterolemia, unspecified (ICD-10) HTN (hypertension) ?I10 - Essential (primary) hypertension (ICD-10) History of home oxygen therapy (Unknown) ?Z99.81 - Dependence on supplemental oxygen (ICD-10) Stroke ?I63.9 - Cerebral infarction, unspecified (ICD-10) Subclavian arterial stenosis ?I77.1 - Stricture of artery (ICD-10) Internal carotid artery stent present (Unknown) ?Z95.828 - Presence of other vascular implants and grafts (ICD-10) Occlusion and stenosis of bilateral carotid arteries ?I65.23 - Occlusion and stenosis of bilateral carotid arteries (ICD-10) Breast cancer ?C50.919 - Malignant neoplasm of unspecified site of unspecified female breast (ICD-10) Pulmonary edema ?J81.1 - Chronic pulmonary edema (ICD-10) Surgical History H/O mastectomy ?Z90.10 - Acquired absence of unspecified breast and nipple (ICD-10) Social History Gender Identity: female Meds Home Medications and Allergies Home Medications Medication Instructions Recorded Confirmed Type amlodipine 10 mg tablet 10 mg PO DAILY 04/04/23 04/13/23 History clopidogrel 75 mg tablet 75 mg PO DAILY 04/04/23 04/13/23 History fluticasone fur. 100 mcg-umeclid 1 inh inhalation Q24H 04/04/23 04/13/23 History 62.5 mcg-vilant 25 mcg inhalat.powder (Trelegy Ellipta) levalbuterol HCl 1.25 mg/3 mL 1.25 mg inhalation Q6H PRN 04/04/23 04/05/23 History solution for nebulization shortness of breath or wheezing lisinopril 40 mg tablet 40 mg PO DAILY 04/04/23 04/13/23 History sertraline 25 mg tablet 25 mg PO DAILY 04/04/23 04/13/23 History alendronate 70 mg tablet 70 mg PO QWEEK 04/05/23 04/13/23 History atorvastatin 80 mg tablet (Lipitor) 80 mg PO QPM 04/05/23 04/13/23 History bisoprolol fumarate 5 mg tablet 5 mg PO DAILY 04/05/23 04/13/23 History furosemide 40 mg tablet 40 mg PO DAILY #30 tabs 04/11/23 04/13/23 Rx levofloxacin 750 mg tablet 750 mg PO DAILY 7 days #7 tabs 04/11/23 04/13/23 Rx prednisone 10 mg tablets in a dose 10 mg PO DAILY #39 ea 04/11/23 04/13/23 Rx pack spironolactone 25 mg tablet 25 mg PO DAILY #30 tabs 04/11/23 04/13/23 Rx Allergies Allergy/AdvReac Type Severity Reaction Status Date / Time acetaminophen [From Talacen] Allergy Intermediate Verified 04/13/23 13:13 nitrofurantoin Allergy Intermediate Verified 04/13/23 13:13 [From Macrobid] pentazocine [From Talacen] Allergy Intermediate Verified 04/13/23 13:13 Sulfa (Sulfonamide Allergy Intermediate Verified 04/13/23 13:13 Antibiotics) tetracycline Allergy Intermediate Verified 04/13/23 13:13 erythromycin base Allergy Mild Verified 04/13/23 13:13 sulfamethoxazole Allergy Mild Verified 04/13/23 13:13 [From Bactrim] trimethoprim [From Bactrim] Allergy Mild Verified 04/13/23 13:13 Exam Constitutional Vital Signs, click to edit/add: Last Vital Signs Temp 97.4 F L 04/05/23 08:30 Pulse 69 04/05/23 11:57 Resp 20 04/05/23 08:30 BP 154/65 H 04/05/23 08:30 Pulse Ox 96 04/05/23 11:57 O2 Del Method Vapotherm 04/05/23 08:30 O2 Flow Rate 40 04/05/23 08:30 FiO2 90 04/05/23 04:42 Documenting provider has reviewed patient's vital signs: yes Common normals: oriented x3 Respiratory Effort & inspection: able to speak in complete sentences, symmetric chest movement and tachypneic Auscultation: diminished lung sounds Cardio Common normals: regular rate; irregular rhythm (flutter vs fib) Rate: regular rate Rhythm: abnormal rhythm Results Labs and Meds Lab results: Coagulation 04/05/23 Range/Units 04:06 PT 11.5 (9.0-11.6) sec CBC 04/04/23 04/05/23 Range/Units 16:18 04:06 WBC 18.9 H 11.5 H (4.0-11.0) 10^3/uL RBC 4.79 4.47 (4.20-5.40) 10^6/uL Hgb 14.4 13.3 (12.0-16.0) g/dL Hct 43.2 40.6 (36.0-48.0) % Plt Count 300 261 (150-450) 10^3/uL Neut # (Auto) 16.4 H (1.4-6.5) 10^3/uL Lymph # (Auto) 1.3 (1.2-3.8) 10^3/uL [place] # (Auto) 0.9 H (0.3-0.8) 10^3/uL Eos # (Auto) 0.0 (0.0-0.7) 10^3/uL Baso # (Auto) 0.0 (0.0-0.1) 10^3/uL Comprehensive Metabolic Panel 04/04/23 04/05/23 Range/Units 16:18 04:06 Sodium 136 138 (136-145) mmol/L Potassium 3.7 2.8 L* (3.5-5.1) mmol/L Chloride 100 102 (98-107) mmol/L Carbon Dioxide 25.5 26.6 (21.0-32.0) mmol/L BUN 21.0 H 26.0 H (7.0-18.0) mg/dL Creatinine 0.79 1.02 (0.55-1.02) mg/dL Glucose 91 224 H (74-106) mg/dL Calcium 8.1 L 8.0 L (8.5-10.1) mg/dL Intake and Output 04/04/23 04/05/23 04/05/23 23:59 07:59 15:59 Intake Total 250 / 250 320 / 320 Output Total 650 / 1700 1050 / 1700 Balance -650 / -1450 -800 / -1450 320 / 320 Intake: IV 250 / 250 320 / 320 Piperacillin Sodium/Tazobactam 50 / 50 3.375 gm In 0.9 % Sodium Chloride 50 ml @ 12.5 mls/hr IV Q8H [facility] Rx#:[id number] Potassium Chloride 40 meq In 0. 270 / 270 9 % Sodium Chloride 250 ml @ 67 .5 mls/hr IV ONCE ONE Rx#: [id number] Vancomycin HCl 750 mg In 0.9 % 250 / 250 Sodium Chloride 250 ml @ 250 mls/hr IV Q12H [facility] Rx#:[id number] Output: Urine 650 / 650 Urine Amount (Catheter) 1050 / 1050 Urethral 1050 / 1050 Other: Weight 65.4 kg 66.2 kg Imaging and Cardiology Echo: pending ECG results: report reviewed EKG Interpretation ECG shows: atrial fibrillation (possibel atrial flutter) Assessment and Plan Assessment and Plan (1) Atrial fibrillation, new onset: Plan -rate control for AF vs flutter, monitor for bradycardia/conversion pauses -rule out PE as planned -no need for diuretics as she is compensated, ct to monitor -will set up for clinic follow up in 2-3 weeks -pending final echo results - prelim does show RV straining -if LVEF reduced titrate GDMT as tolerable for HFrEF -- she would benefit from MRA and/or SGLTi2 if LVEF reduced - [facility] 30d event monitor on discharge and follow up with EP clinic
[2023-04-05 14:25] LABS: Anion Gap 13.5; BUN Creatinine Ratio 29.7; Calcium 7.6 mg/dL (8.5-10.1); Carbon Dioxide 25.6 mmol/L (21.0-32.0); Chloride 104 mmol/L (98-107); Estimated GFR (African America >60 (>=60); Estimated GFR (Non-African Ame >60 (>=60); Glucose 179 mg/dL (74-106); Potassium 4.1 mmol/L (3.5-5.1); Sodium 139 mmol/L (136-145)
[2023-04-05 14:31] LABS: mecA/C DETECTED (NOT DETECTE)
[2023-04-05 14:32] LABS: Staphylococcus epidermidis DETECTED (NOT DETECTE); Staphylococcus spp. DETECTED (NOT DETECTE)
--- NOTE | 2023-04-05 14:39 | CM.NOTE ---
Allan txt sent to MADDIE Garcia for PT and OT orders.
[2023-04-05 14:42] LABS: Free T3 1.36 pg/mL (2.18-3.98)
[2023-04-05 15:17] LABS: Free T4 1.07 ng/dL (0.76-1.46)
[2023-04-05] MEDS: PANTOPRAZOLE SODIUM 40 MG VIAL IV (20:20)
[2023-04-06] VITALS (519 sets, daily range): BP systolic 145–172; BP diastolic 62–80; PULSE 45–130; RESP 10–32; TEMP 36.9; O2SAT 75–99
[2023-04-06] MEDS: IPRATROPIUM/ALBUTEROL SULFATE 3 ML AMPUL.NEB IH ×2 (03:59→07:45)
--- NOTE | 2023-04-06 04:00 | XR_ITS ---
The [address] [address] Patient Name: MARK REYES MRN: [id number] date: 1945 Sex: F Assigned Patient Location: ICU Current Patient Location: ICU Accession/Order Number: [id number] Exam Date: 04/06/2023 06:20 Report Date: 04/06/2023 07:55 At the request of: EBEN VALENTIN Procedure: XR chest 1V EXAM: XR chest 1V HISTORY: Follow-up pneumonia. COMPARISON: Portable chest radiograph dated 04/04/2023. TECHNIQUE: AP erect portable chest radiograph performed. FINDINGS: The patient is tilted to the right. The trachea is unremarkable. There is stable mild prominence of the cardiac silhouette. There is slightly improved patchy airspace disease throughout both lung myers. There is no pleural effusion. There is no pneumothorax or acute osseous abnormality. XR/XR chest 1V IMPRESSION: Slightly improved patchy airspace disease throughout both lung myers. Continued appropriate medical treatment and follow-up chest radiographs to confirm complete resolution recommended. Electronically authenticated by: DONIS KHAN Date: 04/06/2023 07:55
[2023-04-06] MEDS: VANCOMYCIN HCL 750 MG in 0.9 % SODIUM CHLORIDE 250 ML 250 MG IV (04:59)
[2023-04-06] MEDS: METHYLPREDNISOLONE SOD SUCC PF 125 MG/2 ML VIAL IVP ×4 (05:00→23:38)
[2023-04-06] MEDS: PIPERACILLIN SODIUM/TAZOBACTAM 3.375 GM in 0.9 % SODIUM CHLORIDE 50 ML IV (05:34)
--- NOTE | 2023-04-06 08:32 | P.PN_ITS ---
Progress Note: Subjective Subjective Interval history: Patient overall feels better. Up in chair, about to eat breakfast, breathing does not appear to be as labored. Currently since this morning is still 85% FiO2 Exam Constitutional Vital Signs, click to edit/add: Last Vital Signs Temp 98.5 F 04/06/23 08:00 Pulse 69 04/06/23 08:24 Resp 24 04/06/23 08:12 BP 172/75 H 04/06/23 08:10 Pulse Ox 93 L 04/06/23 08:24 O2 Del Method Home BIPAP / CPAP 04/06/23 08:26 O2 Flow Rate 40 04/06/23 08:26 FiO2 85 04/06/23 08:26 Common normals: oriented x3, alert and well nourished General appearance: cooperative Orientation/consciousness: Yes awake HENMT Common normals: normocephalic, head/scalp atraumatic, hearing grossly normal bilaterally, external nose normal and moist oral mucous membranes Eye Common normals: PERRL, EOMs intact bilaterally, conjunctivae normal and no scleral icterus Alignment: alignment normal Eyelid: eyelids normal Neck & C-Spine Common normals: full ROM, supple and no JVD Thyroid: solitary palpable nodule on the left Chest Common normals: inspection of chest normal Chest: symmetrical chest wall rise Respiratory Common normals: normal respiratory effort, no retractions and no use of accessory muscles Effort & inspection: able to speak in complete sentences Auscultation: rhonchi (BLL, RML) and wheezes (EE scattered throughout) Cardio Common normals: no JVD, regular rate, S1 normal heart sound, S2 normal heart sound, no gallops, no clicks, no rub and peripheral pulses 2+ throughout Rhythm: abnormal rhythm irregularly irregular Heart sounds: murmur (HSM 2/6) GI Common normals: Normal to inspection, nondistended, normoactive bowel sounds present, soft to palpation, non-tender, no hepatosplenomegaly, no masses and no bruits Bladder/kidney exam: bladder normal to palpation Extremity Common normals: normal capillary refill and no pedal edema General: normal exam except as noted; no cyanosis Neuro [place] Coma Scale: GCS not evaluated Common normals: oriented x3, CN's II-XII intact bilaterally, moves all extremities, no focal motor deficits and no sensory deficits noted Sensorium/orientation: awake and alert Speech: speech normal Psych Common normals: mental status grossly normal, thought process normal, affect normal and activity/motor behavior normal Progress Note: Objective Labs Labs: [facility] 04/05/23 14:05 Sodium 139 Potassium 4.1 Chloride 104 Carbon Dioxide 25.6 BUN 27.0 H Creatinine 0.91 Glucose 179 H Calcium 7.6 L Progress Note: A&P Assessment and Plan (1) Acute hypoxemic respiratory failure: (2) Atrial fibrillation, new onset: (3) COPD with acute exacerbation: (4) Pulmonary edema: (5) COVID-19: (6) Hypokalemia: (7) HTN (hypertension): (8) Stroke: Plan (1) Acute hypoxemic respiratory failure resulting in sepsis with multisystem organ failure(HEENT, cardiac, pulmonary, renal): Due to COVID-19 and acute combined congestive heart failure. Also significant leukocytosis and pneumonia underlying all that is a possibility with bacterial being highly suspicious based on left shift. Continue with IV antibiotics. Diurese more aggressively today. Check on echo report. With the heart failure and COVID-19 to keep on the dry side will be beneficial for helping to wean supplemental oxygen Atrial fibrillation, new onset:-Check an echo report, reviewed consultation from cardiology, rate fairly well-controlled, and on rounds this morning patient is converted to normal sinus rhythm, maintain patient on Eliquis and medications. COPD with acute exacerbation secondary to [id number] aerosol treatments Pulmonary edema: As above-diurese today. Check an echo COVID-19:-Outside of range for treating specifically for COVID-19. Continue to wean oxygen as outlined above, on steroids. Add Zyrtec., Timing vasquez will be outside for arrange for quarantine tomorrow Hypokalemia: Monitor daily and supplement HTN (hypertension): Maintain home medications ?
[2023-04-06 08:44] LABS: Basophils Absolute Auto 0.1 10^3/uL (0.0-0.1); Basophils Percent Auto 0.2 % (0.2-2.0); Hemoglobin 13.9 g/dL (12.0-16.0); Immature Granulocytes Abs Auto 0.23 10^3/uL (0.00-0.03); Immature Granulocytes Pct Auto 0.8 % (0.0-0.5); Lymphocytes Absolute Auto 0.6 10^3/uL (1.2-3.8); Lymphocytes Percent Auto 1.9 % (20.5-60.0); Mean Corpuscular HGB Conc 32.3 g/dL (29.9-35.2); Mean Corpuscular Hemoglobin 29.9 pg (26.7-34.0); Mean Corpuscular Volume 92.5 fL (81.0-99.0); Mean Platelet Volume 10.2 fL (9.5-13.5); Monocytes Absolute Auto 0.5 10^3/uL (0.3-0.8); Monocytes Percent Auto 1.6 % (1.7-12.0); Neutrophils Absolute Auto 27.7 10^3/uL (1.4-6.5); Neutrophils Percent Auto 95.5 % (43.0-75.0); Platelet Count 359 10^3/uL (150-450); Red Blood Count 4.65 10^6/uL (4.20-5.40); Red Cell Distribution Width 13.9 % (11.0-15.0)
[2023-04-06] MEDS: ZINC GLUCONATE 50 MG TABLET PO (08:57)
[2023-04-06] MEDS: CETIRIZINE HCL 10 MG TABLET 20 MG PO (08:57)
[2023-04-06] MEDS: LISINOPRIL 20 MG TABLET 40 MG PO (08:57)
[2023-04-06] MEDS: AMLODIPINE BESYLATE 5 MG TABLET 10 MG PO (08:57)
[2023-04-06] MEDS: CLOPIDOGREL BISULFATE 75 MG TABLET PO (08:58)
[2023-04-06] MEDS: SERTRALINE HCL 50 MG TABLET 25 MG PO (08:58)
[2023-04-06] MEDS: METOPROLOL TARTRATE 25 MG TABLET PO ×2 (08:58→21:40)
[2023-04-06] MEDS: ASCORBIC ACID 500 MG TABLET PO (08:58)
[2023-04-06] MEDS: APIXABAN 5 MG TABLET PO ×2 (08:58→21:40)
[2023-04-06] MEDS: CHOLECALCIFEROL (VITAMIN D3) 125 MCG/5000 UNIT TABLET PO (08:58)
[2023-04-06] MEDS: GUAIFENESIN 600 MG TAB.ER.12H PO ×2 (09:00→21:40)
[2023-04-06 09:04] LABS: Alanine Aminotransferase 35 U/L (14-59); Albumin Globulin Ratio 0.7; Albumin Level 2.7 g/dL (3.4-5.0); Alkaline Phosphatase 93 U/L (46-116); Anion Gap 14.3; Aspartate Amino Transferase 26 U/L (15-37); BUN Creatinine Ratio 35.8; Bilirubin Total 0.8 mg/dL (0.2-1.0); Carbon Dioxide 27.1 mmol/L (21.0-32.0); Chloride 105 mmol/L (98-107); Estimated GFR (African America >60 (>=60); Estimated GFR (Non-African Ame 57 (>=60); Globulin 3.7 g/dL; Glucose 162 mg/dL (74-106); Potassium 4.4 mmol/L (3.5-5.1); Sodium 142 mmol/L (136-145); Total Protein 6.4 g/dL (6.4-8.2); Troponin I High Sensitivity 38.8 pg/mL (4.0-51.3)
--- NOTE | 2023-04-06 09:09 | CM.NOTE ---
Rounds made with Dr. Felix. Remains on Vapotherm. No plan for discharge today.
[2023-04-06] MEDS: LEVALBUTEROL HCL 0.63 MG/3 ML VIAL.NEB IH ×3 (10:03→23:27)
[2023-04-06] MEDS: BUDESONIDE 0.5 MG/2 ML AMPULE NEB IH ×2 (10:04→23:27)
[2023-04-06] MEDS: IPRATROPIUM BROMIDE 0.5 MG/2.5 ML VIAL.NEB IH ×3 (10:30→23:27)
--- NOTE | 2023-04-06 10:44 | ECG_ITS ---
The [facility] Test Date: 2023-04-06 Pat Name: MARK REYES Department: Room: 2731 Gender: Female [employer] Technician: : 1945 Requested By: TERESA GREWAL Order Number: [id number] Reading MD: TERESA GREWAL Measurements Intervals [place] Rate: 55 P: 62 WI: 134 QRS: 8 QRSD: 80 T: -30 QT: 452 QTc: 442 Interpretive Statements 1100 Sinus rhythm 1470 with occasional supraventricular premature complexes 4068 Nonspecific Tw[place] abnormality - possible in wall ischemia 8102 Low QRS voltage in chest leads 9140 abnormal rhythm ECG Compared to ECG 04/05/2023 05:43:06 Low QRS voltage now present Atrial fibrillation no longer present Electronically Signed On 04-07-2023 5:28:32 EST by TERESA GREWAL
[2023-04-06] MEDS: BUMETANIDE 10 MG in 0.9 % SODIUM CHLORIDE 160 ML 20 MG IV (11:17)
[2023-04-06] MEDS: LIOTHYRONINE SODIUM 5 MCG TABLET PO (11:17)
[2023-04-06 11:28] LABS: Allen Test POSITIVE (POSITIVE); HCO3 ABG 21.9 mmol/L (22.0-26.0); O2 Mode VAPOTHERM; Oxygen Saturation ABG 95.7 %; PO2 ABG 73.2 mmHg (80.0-100.0); pH ABG 7.457 (7.350-7.450)
[2023-04-06 11:29] LABS: Fractionated Inspired Oxygen 70 %; Liters per Minute 40; Puncture Site RR
[2023-04-06] MEDS: CEFTAZIDIME 2,000 MG in 0.9 % SODIUM CHLORIDE 100 ML 200 MG IV (12:24)
--- NOTE | 2023-04-06 16:44 | RESP.RT ---
pt currently weaned down to 60% fio2 on vapotherm tolerating well
[2023-04-06] MEDS: PANTOPRAZOLE SODIUM 40 MG VIAL IV (21:40)
[2023-04-06] MEDS: L. ACIDOPHILUS/L.BULGARICUS 1 PACKET GRAN.PACK PO (21:40)
[2023-04-06] MEDS: ATORVASTATIN CALCIUM 40 MG TABLET 80 MG PO (21:40)
[2023-04-07] VITALS (221 sets, daily range): BP systolic 143–181; BP diastolic 53–94; PULSE 39–101; RESP 0–42; TEMP 36.4–36.7; O2SAT 80–95
[2023-04-07] MEDS: CEFTAZIDIME 2,000 MG in 0.9 % SODIUM CHLORIDE 100 ML 200 MG IV (00:33)
[2023-04-07] MEDS: LEVALBUTEROL HCL 0.63 MG/3 ML VIAL.NEB IH ×4 (04:33→23:36)
[2023-04-07] MEDS: IPRATROPIUM BROMIDE 0.5 MG/2.5 ML VIAL.NEB IH ×4 (04:33→23:35)
[2023-04-07] MEDS: METHYLPREDNISOLONE SOD SUCC PF 125 MG/2 ML VIAL IVP ×3 (05:39→17:36)
[2023-04-07 05:40] LABS: Hematocrit 42.5 % (36.0-48.0); Mean Corpuscular HGB Conc 32.9 g/dL (29.9-35.2); Mean Corpuscular Hemoglobin 29.2 pg (26.7-34.0); Mean Corpuscular Volume 88.7 fL (81.0-99.0); Mean Platelet Volume 9.9 fL (9.5-13.5); Platelet Count 399 10^3/uL (150-450); Red Blood Count 4.79 10^6/uL (4.20-5.40); Red Cell Distribution Width 13.4 % (11.0-15.0); White Blood Count 29.4 10^3/uL (4.0-11.0)
--- NOTE | 2023-04-07 05:48 | PC.NURSE ---
increasing vapotherm to 45% O2
[2023-04-07 06:14] LABS: Lymphocytes Absolute Manual 0.58 10^3/uL (1.20-3.80); Segmented Neut Absolute Manual 28.81 10^3/uL (1.4-6.5)
[2023-04-07 06:15] LABS: Anisocytosis 3+; Poikilocytosis 3+
[2023-04-07 06:17] LABS: Alanine Aminotransferase 29 U/L (14-59); Albumin Globulin Ratio 0.8; Albumin Level 2.7 g/dL (3.4-5.0); Alkaline Phosphatase 90 U/L (46-116); Aspartate Amino Transferase 21 U/L (15-37); BUN Creatinine Ratio 35.3; Bilirubin Total 0.8 mg/dL (0.2-1.0); Calcium 8.1 mg/dL (8.5-10.1); Carbon Dioxide 27.2 mmol/L (21.0-32.0); Chloride 102 mmol/L (98-107); Estimated GFR (African America 53 (>=60); Estimated GFR (Non-African Ame 44 (>=60); Globulin 3.6 g/dL; Glucose 164 mg/dL (74-106); Potassium 3.2 mmol/L (3.5-5.1); Sodium 141 mmol/L (136-145); Total Protein 6.3 g/dL (6.4-8.2); Troponin I High Sensitivity 43.6 pg/mL (4.0-51.3)
[2023-04-07] MEDS: L. ACIDOPHILUS/L.BULGARICUS 1 PACKET GRAN.PACK PO ×2 (08:12→21:09)
[2023-04-07] MEDS: SERTRALINE HCL 50 MG TABLET 25 MG PO (08:12)
[2023-04-07] MEDS: ZINC GLUCONATE 50 MG TABLET PO (08:12)
[2023-04-07] MEDS: APIXABAN 5 MG TABLET PO ×2 (08:13→21:09)
[2023-04-07] MEDS: LISINOPRIL 20 MG TABLET 40 MG PO (08:13)
[2023-04-07] MEDS: CLOPIDOGREL BISULFATE 75 MG TABLET PO (08:13)
[2023-04-07] MEDS: LIOTHYRONINE SODIUM 5 MCG TABLET PO (08:13)
[2023-04-07] MEDS: CETIRIZINE HCL 10 MG TABLET 20 MG PO (08:13)
[2023-04-07] MEDS: AMLODIPINE BESYLATE 5 MG TABLET 10 MG PO (08:13)
[2023-04-07] MEDS: ASCORBIC ACID 500 MG TABLET PO (08:14)
[2023-04-07] MEDS: CHOLECALCIFEROL (VITAMIN D3) 125 MCG/5000 UNIT TABLET PO (08:14)
[2023-04-07] MEDS: METOPROLOL TARTRATE 25 MG TABLET PO ×2 (08:14→21:09)
--- NOTE | 2023-04-07 08:25 | CM.NOTE ---
2nd Notice of Important Message From medicare discussed with pt, pt verbalizes understanding. Pt denies any questions or concerns.
--- NOTE | 2023-04-07 09:08 | CM.NOTE ---
Rounds made with Dr. Felix. Continues on Vapotherm. Weller to be removed today. Currently has 2L/NC oxygen at home through [facility].
--- NOTE | 2023-04-07 09:09 | P.PN_ITS ---
Progress Note: Subjective Subjective Interval history: Sitting up in bed, looks pretty good today. Able to wean down her FiO2 down from 40 to 45%. She was 85% yesterday morning Exam Constitutional Vital Signs, click to edit/add: Last Vital Signs Temp 97.6 F 04/07/23 07:39 Pulse 61 04/07/23 07:39 Resp 18 04/07/23 07:39 BP 174/70 H 04/07/23 07:39 Pulse Ox 90 L 04/07/23 07:39 O2 Del Method Vapotherm 04/07/23 07:39 O2 Flow Rate 40 04/07/23 06:09 FiO2 45 04/07/23 06:09 Common normals: oriented x3, alert and well nourished General appearance: cooperative Orientation/consciousness: Yes awake HENMT Common normals: normocephalic, head/scalp atraumatic, hearing grossly normal bilaterally, external nose normal and moist oral mucous membranes Eye Common normals: PERRL, EOMs intact bilaterally, conjunctivae normal and no scleral icterus Alignment: alignment normal Eyelid: eyelids normal Neck & C-Spine Common normals: full ROM, supple and no JVD Thyroid: solitary palpable nodule on the left Chest Common normals: inspection of chest normal Chest: symmetrical chest wall rise Respiratory Common normals: normal respiratory effort, no retractions and no use of accessory muscles Effort & inspection: able to speak in complete sentences Auscultation: rhonchi (Sounds better with better air exchange); no wheezes (EE scattered throughout) Cardio Common normals: no JVD, regular rate, S1 normal heart sound, S2 normal heart sound, no gallops, no clicks, no rub and peripheral pulses 2+ throughout Rhythm: abnormal rhythm irregularly irregular Heart sounds: murmur (HSM 2/6) GI Common normals: Normal to inspection, nondistended, normoactive bowel sounds present, soft to palpation, non-tender, no hepatosplenomegaly, no masses and no bruits Bladder/kidney exam: bladder normal to palpation Extremity Common normals: normal capillary refill and no pedal edema General: normal exam except as noted; no cyanosis Neuro [place] Coma Scale: GCS not evaluated Common normals: oriented x3, CN's II-XII intact bilaterally, moves all extremities, no focal motor deficits and no sensory deficits noted Sensorium/orientation: awake and alert Speech: speech normal Psych Common normals: mental status grossly normal, thought process normal, affect normal and activity/motor behavior normal Progress Note: Objective Labs Labs: Short CBC 04/07/23 Range/Units 05:19 WBC 29.4 H (4.0-11.0) 10^3/uL Hgb 14.0 (12.0-16.0) g/dL Hct 42.5 (36.0-48.0) % Plt Count 399 (150-450) 10^3/uL BMP 04/06/23 04/07/23 06:05 05:19 Sodium 142 141 Potassium 4.4 3.2 L Chloride 105 102 Carbon Dioxide 27.1 27.2 BUN 34.0 H 42.0 H Creatinine 0.95 1.19 H Glucose 162 H 164 H Calcium 8.0 L 8.1 L Liver Function 04/06/23 04/07/23 Range/Units 06:05 05:19 Total Bilirubin 0.8 0.8 (0.2-1.0) mg/dL AST 26 21 (15-37) U/L ALT 35 29 (14-59) U/L Alkaline Phosphatase 93 90 (46-116) U/L Albumin 2.7 L 2.7 L (3.4-5.0) g/dL Progress Note: A&P Assessment and Plan (1) Acute hypoxemic respiratory failure: (2) Atrial fibrillation, new onset: (3) COPD with acute exacerbation: (4) Pulmonary edema: (5) COVID-19: (6) Hypokalemia: (7) HTN (hypertension): (8) Stroke: Plan Acute hypoxemic respiratory failure resulting in sepsis with multisystem organ failure(HEENT, cardiac, pulmonary, renal): Due to COVID-19 and acute combined congestive heart failure with bilateral pneumonia. Echocardiogram shows elevated right-sided pressures. White blood cell count is still elevated today. Antibiotics were adjusted yesterday. She diuresed well yesterday. Down 4 L. Will hold off on further diuresis as her creatinine is somewhat elevated today. Check on sputum culture, sample obtained yesterday. Atrial fibrillation, new onset: Echo report-see above, so far remains in sinus rhythm converting 04/06/2023 COPD with acute exacerbation secondary to [id number] aerosol treatments Pulmonary edema: Improved. Will follow-up with chest x-ray today.-BNP is better COVID-19:-Outside of range for treating specifically for COVID-19. 10 to 40% FiO2 so we will try patient on nasal cannula. Hypokalemia: Monitor daily and supplement HTN (hypertension): Maintain home medications-continue to adjust medications Moderate protein calorie malnutrition-diet supplement Hyperglycemia secondary to above treatment-we will continue to monitor and adjust medications Hypokalemia-supplement likely secondary to the diuresis Mild constipation-add lactulose as needed ?
--- NOTE | 2023-04-07 09:12 | XR_ITS ---
The [address] [address] Patient Name: MARK REYES MRN: [id number] date: 1945 Sex: F Assigned Patient Location: ICU Current Patient Location: ICU Accession/Order Number: [id number] Exam Date: 04/07/2023 09:20 Report Date: 04/07/2023 10:11 At the request of: TERESA GREWAL Procedure: XR chest 1V EXAMINATION: XR chest 1V HISTORY: dyspnea COMPARISON: XR chest 04/06/2023, 04/04/2023 FINDINGS: LUNGS: Mild haziness throughout the lungs suggesting residual airspace disease. No focal opacity. VASCULATURE: No increased pulmonary vasculature. PLEURA: No pneumothorax, effusion, or pleural thickening. CARDIAC: No cardiomegaly or cardiac silhouette abnormality. MEDIASTINUM: No visible mass or adenopathy. BONES: No fracture or visible bone lesion. OTHER: Negative. XR/XR chest 1V IMPRESSION: 1. Mild diffuse infiltrates bilaterally showing continuing improvement compared to prior studies. Electronically authenticated by: EUFEMIA SPENCE Date: 04/07/2023 10:11
[2023-04-07] MEDS: GUAIFENESIN 600 MG TAB.ER.12H PO ×2 (10:03→21:09)
[2023-04-07] MEDS: POTASSIUM CHLORIDE 10 MEQ ER TABLET 20 MEQ PO ×2 (10:03→21:09)
[2023-04-07] MEDS: ENSURE HP 237 ML LIQUID PO ×2 (10:03→21:09)
--- NOTE | 2023-04-07 11:04 | PT.DAILY ---
Physical Therapy Daily Note PT Daily Note/Assess Start: 04/07/23 11:01 Freq: Status: Active Protocol: Document 04/07/23 11:01 FAITH (Rec: 04/07/23 11:04 [email or web address] [id number]) Physical Therapy Daily Note/Assessment Time In/Time Out Time In 09:51 Time Out 10:00 Pain In Pain N/A Pain Out Pain N/A Subjective Subjective Pt sitting in BS chair upon arrival. Agrees to PT. Denies pain. On 6L O2 today vs vapotherm. Spo2 93% prior to session. Therapeutic Exercise Time Therapeutic Exercise Minutes (minutes) 3 Therapeutic Exercise Units 0 Therapeutic Exercise Treatment Therapeutic Exercise Treatment Seated bilat LE strengthening ex complete 10x ea in BS chair to improve functional mobility prior to gait. Therapeutic Activity Time Therapeutic Activity Minutes (minutes) 5 Therapeutic Activity Units 1 Therapeutic Activity Treatment Chair Transfer Ability Modified Independent Therapeutic Activity Comments Sit>stand Sandro due to O2 lines . Pt amb in room 100' (2 laps) no AD, SUP. NO LOB noticed. Good carolyne and stride length . Spo2 84% upon completion with 1 min to recover to 91%. Pt is on O2 at home. Remains in BS chair upon completion with call light in reach and needs met. Total Physical Therapy Time Total Therapy Minutes 8 Total Physical Therapy Units 1 Summary Daily Note Summary Improved endurance with gait - able to move more freely in room with NC O2 lines vs vapotherm. No increased SOB or pain upon completion.
[2023-04-07] MEDS: BUDESONIDE 0.5 MG/2 ML AMPULE NEB IH ×2 (11:49→23:35)
[2023-04-07] MEDS: HYDRALAZINE HCL 10 MG TABLET PO ×3 (12:27→21:09)
[2023-04-07] MEDS: CEFTAZIDIME 2,000 MG in 0.9 % SODIUM CHLORIDE 100 ML 100 MG IV (12:47)
--- NOTE | 2023-04-07 16:20 | CM.NOTE ---
Spoke with pt again today regarding discharge planning, pt continues to states she has plenty of help at home.
[2023-04-07] MEDS: PANTOPRAZOLE SODIUM 40 MG VIAL IV (21:09)
[2023-04-07] MEDS: ATORVASTATIN CALCIUM 40 MG TABLET 80 MG PO (21:10)
[2023-04-07] MEDS: METHYLPREDNISOLONE SOD SUCC PF 125 MG/2 ML VIAL 60 MG IVP (23:34)
[2023-04-08] VITALS (114 sets, daily range): BP systolic 168–195; BP diastolic 60–82; PULSE 61–117; RESP 0–42; TEMP 36.7–36.9; O2SAT 84–95
[2023-04-08 04:05] LABS: Basophils Percent Auto 0.1 % (0.2-2.0); Hematocrit 37.3 % (36.0-48.0); Hemoglobin 12.2 g/dL (12.0-16.0); Immature Granulocytes Abs Auto 0.19 10^3/uL (0.00-0.03); Immature Granulocytes Pct Auto 0.8 % (0.0-0.5); Lymphocytes Absolute Auto 0.6 10^3/uL (1.2-3.8); Lymphocytes Percent Auto 2.3 % (20.5-60.0); Mean Corpuscular HGB Conc 32.7 g/dL (29.9-35.2); Mean Corpuscular Hemoglobin 29.7 pg (26.7-34.0); Mean Corpuscular Volume 90.8 fL (81.0-99.0); Monocytes Absolute Auto 0.6 10^3/uL (0.3-0.8); Monocytes Percent Auto 2.4 % (1.7-12.0); Neutrophils Absolute Auto 22.8 10^3/uL (1.4-6.5); Neutrophils Percent Auto 94.4 % (43.0-75.0); Platelet Count 280 10^3/uL (150-450); Red Blood Count 4.11 10^6/uL (4.20-5.40); Red Cell Distribution Width 13.6 % (11.0-15.0); White Blood Count 24.2 10^3/uL (4.0-11.0)
[2023-04-08 04:30] LABS: Alanine Aminotransferase 23 U/L (14-59); Albumin Globulin Ratio 0.7; Albumin Level 2.3 g/dL (3.4-5.0); Alkaline Phosphatase 79 U/L (46-116); Anion Gap 11.3; Aspartate Amino Transferase 18 U/L (15-37); BUN Creatinine Ratio 43.8; Bilirubin Total 0.6 mg/dL (0.2-1.0); Carbon Dioxide 27.2 mmol/L (21.0-32.0); Chloride 105 mmol/L (98-107); Estimated GFR (African America >60 (>=60); Estimated GFR (Non-African Ame 51 (>=60); Globulin 3.3 g/dL; Glucose 166 mg/dL (74-106); Potassium 3.5 mmol/L (3.5-5.1); Sodium 140 mmol/L (136-145); Total Protein 5.6 g/dL (6.4-8.2)
[2023-04-08] MEDS: HYDRALAZINE HCL 10 MG TABLET PO (05:32)
[2023-04-08] MEDS: METHYLPREDNISOLONE SOD SUCC PF 125 MG/2 ML VIAL 60 MG IVP (05:32)
[2023-04-08] MEDS: IPRATROPIUM BROMIDE 0.5 MG/2.5 ML VIAL.NEB IH ×4 (05:43→22:38)
[2023-04-08] MEDS: LEVALBUTEROL HCL 0.63 MG/3 ML VIAL.NEB IH ×4 (05:43→22:38)
[2023-04-08] MEDS: ENSURE HP 237 ML LIQUID PO ×2 (08:15→21:39)
[2023-04-08] MEDS: FUROSEMIDE 40 MG/4 ML VIAL IVP ×2 (08:15→20:01)
[2023-04-08] MEDS: POTASSIUM CHLORIDE 10 MEQ ER TABLET 20 MEQ PO ×2 (08:16→21:45)
[2023-04-08] MEDS: ASCORBIC ACID 500 MG TABLET PO (08:16)
[2023-04-08] MEDS: LISINOPRIL 20 MG TABLET 40 MG PO (08:16)
[2023-04-08] MEDS: L. ACIDOPHILUS/L.BULGARICUS 1 PACKET GRAN.PACK PO ×2 (08:17→21:39)
[2023-04-08] MEDS: CETIRIZINE HCL 10 MG TABLET 20 MG PO (08:17)
[2023-04-08] MEDS: AMLODIPINE BESYLATE 5 MG TABLET 10 MG PO (08:17)
[2023-04-08] MEDS: LIOTHYRONINE SODIUM 5 MCG TABLET PO (08:17)
[2023-04-08] MEDS: APIXABAN 5 MG TABLET PO ×2 (08:17→21:42)
[2023-04-08] MEDS: CHOLECALCIFEROL (VITAMIN D3) 125 MCG/5000 UNIT TABLET PO (08:17)
[2023-04-08] MEDS: CLOPIDOGREL BISULFATE 75 MG TABLET PO (08:17)
[2023-04-08] MEDS: SERTRALINE HCL 50 MG TABLET 25 MG PO (08:17)
[2023-04-08] MEDS: METOPROLOL TARTRATE 25 MG TABLET PO ×2 (08:17→21:39)
[2023-04-08] MEDS: PROSTAT 15 GM PROTEIN/100 CAL 30 ML LIQUID PACKET PO ×2 (08:18→21:39)
--- NOTE | 2023-04-08 10:33 | P.PN_ITS ---
Progress Note: Subjective Subjective Interval history: Feeling better today, able to wean down to 5 L of nasal cannula oxygen, still with significant dyspnea with any activity. Saturation to decrease with activity but rebounds quickly Exam Constitutional Vital Signs, click to edit/add: Last Vital Signs Temp 98.1 F 04/07/23 20:22 Pulse 82 04/08/23 09:00 Resp 20 04/08/23 05:43 BP 173/75 H 04/08/23 08:17 Pulse Ox 94 L 04/08/23 07:00 O2 Del Method Nasal Cannula 04/08/23 05:43 O2 Flow Rate 5 04/08/23 05:43 FiO2 45 04/07/23 06:09 Common normals: oriented x3, alert and well nourished General appearance: cooperative Orientation/consciousness: Yes awake HENMT Common normals: normocephalic, head/scalp atraumatic, hearing grossly normal bilaterally, external nose normal and moist oral mucous membranes Eye Common normals: PERRL, EOMs intact bilaterally, conjunctivae normal and no scleral icterus Alignment: alignment normal Eyelid: eyelids normal Neck & C-Spine Common normals: full ROM, supple and no JVD Thyroid: solitary palpable nodule on the left Chest Common normals: inspection of chest normal Chest: symmetrical chest wall rise Respiratory Common normals: normal respiratory effort, no retractions and no use of accessory muscles Effort & inspection: able to speak in complete sentences Auscultation: rhonchi (Sounds better with better air exchange); no wheezes (EE scattered throughout) Cardio Common normals: no JVD, regular rate, S1 normal heart sound, S2 normal heart sound, no gallops, no clicks, no rub and peripheral pulses 2+ throughout Rhythm: abnormal rhythm irregularly irregular Heart sounds: murmur (HSM 2/6) GI Common normals: Normal to inspection, nondistended, normoactive bowel sounds present, soft to palpation, non-tender, no hepatosplenomegaly, no masses and no bruits Bladder/kidney exam: bladder normal to palpation Extremity Common normals: normal capillary refill and no pedal edema General: normal exam except as noted; no cyanosis Neuro [place] Coma Scale: GCS not evaluated Common normals: oriented x3, CN's II-XII intact bilaterally, moves all extremities, no focal motor deficits and no sensory deficits noted Sensorium/orientation: awake and alert Speech: speech normal Psych Common normals: mental status grossly normal, thought process normal, affect normal and activity/motor behavior normal Progress Note: Objective Labs Labs: Short CBC 04/08/23 Range/Units 03:45 WBC 24.2 H (4.0-11.0) 10^3/uL Hgb 12.2 (12.0-16.0) g/dL Hct 37.3 (36.0-48.0) % Plt Count 280 (150-450) 10^3/uL BMP 04/08/23 03:45 Sodium 140 Potassium 3.5 Chloride 105 Carbon Dioxide 27.2 BUN 46.0 H Creatinine 1.05 H Glucose 166 H Calcium 8.0 L Liver Function 04/08/23 Range/Units 03:45 Total Bilirubin 0.6 (0.2-1.0) mg/dL AST 18 (15-37) U/L ALT 23 (14-59) U/L Alkaline Phosphatase 79 (46-116) U/L Albumin 2.3 L (3.4-5.0) g/dL Progress Note: A&P Assessment and Plan (1) Acute hypoxemic respiratory failure: (2) Atrial fibrillation, new onset: (3) COPD with acute exacerbation: (4) Pulmonary edema: (5) COVID-19: (6) Hypokalemia: (7) HTN (hypertension): (8) Stroke: Plan Acute hypoxemic respiratory failure resulting in sepsis with multisystem organ failure(HEENT, cardiac, pulmonary, renal): Due to COVID-19 and acute combined congestive heart failure with bilateral pneumonia. Echocardiogram shows elevated right-sided pressures. White blood cell count is still elevated today. White blood cell count is better today. Sputum culture hopefully by tomorrow, maintain current antibiotics. Continue to wean down supplemental oxygen, once down to her baseline of 3 L she can be discharged home. Atrial fibrillation, new onset: Echo report-see above, so far remains in sinus rhythm converting 04/06/2023 COPD with acute exacerbation secondary to [id number] aerosol treatments Pulmonary edema: Improved. Better on x-ray-IV Lasix today. BNP is back e levated today. Creatinine is better than yesterday. COVID-19:-Outside of range for treating specifically for COVID-19. 10 to 40% FiO2 so we will try patient on nasal cannula. Hypokalemia: Monitor daily and supplement HTN (hypertension): Increase hydralazine today Moderate protein calorie malnutrition-diet supplement Hyperglycemia secondary to above treatment-likely to improve with decreasing steroid dosing Hypokalemia-supplement likely secondary to the diuresis Mild constipation-add lactulose as needed Thrush secondary to steroids-oral nystatin ?
[2023-04-08] MEDS: BUDESONIDE 0.5 MG/2 ML AMPULE NEB IH ×2 (11:37→22:38)
[2023-04-08] MEDS: NYSTATIN 500,000 UNIT/5 ML ORAL.SUSP 500000 UNIT PO ×3 (12:13→21:39)
[2023-04-08] MEDS: HYDRALAZINE HCL 25 MG TABLET PO ×3 (12:13→21:39)
[2023-04-08] MEDS: METHYLPREDNISOLONE SOD SUCC PF 40 MG/ML VIAL IVP ×2 (12:13→17:24)
[2023-04-08] MEDS: CEFTAZIDIME 2,000 MG in 0.9 % SODIUM CHLORIDE 100 ML 200 MG IV ×2 (12:43)
[2023-04-08] MEDS: HYDRALAZINE HCL 20 MG/ML VIAL 10 MG IVP (19:56)
[2023-04-08] MEDS: PANTOPRAZOLE SODIUM 40 MG VIAL IV (21:39)
[2023-04-08] MEDS: ATORVASTATIN CALCIUM 40 MG TABLET 80 MG PO (21:42)
[2023-04-09] VITALS (107 sets, daily range): BP systolic 144–179; BP diastolic 55–94; PULSE 60–109; RESP 14–18; TEMP 36.6–37.1; O2SAT 84–99
[2023-04-09] MEDS: METHYLPREDNISOLONE SOD SUCC PF 40 MG/ML VIAL IVP ×2 (00:20→05:36)
[2023-04-09] MEDS: CEFTAZIDIME 2,000 MG in 0.9 % SODIUM CHLORIDE 100 ML 200 MG IV ×2 (00:20→12:14)
[2023-04-09 05:10] LABS: Hematocrit 39.9 % (36.0-48.0); Hemoglobin 12.9 g/dL (12.0-16.0); Mean Corpuscular HGB Conc 32.3 g/dL (29.9-35.2); Mean Corpuscular Hemoglobin 29.2 pg (26.7-34.0); Mean Corpuscular Volume 90.3 fL (81.0-99.0); Mean Platelet Volume 10.1 fL (9.5-13.5); Platelet Count 316 10^3/uL (150-450); Red Blood Count 4.42 10^6/uL (4.20-5.40); Red Cell Distribution Width 13.6 % (11.0-15.0)
[2023-04-09 05:36] LABS: Alanine Aminotransferase 25 U/L (14-59); Albumin Globulin Ratio 0.9; Albumin Level 2.7 g/dL (3.4-5.0); Alkaline Phosphatase 88 U/L (46-116); Anion Gap 12.6; Aspartate Amino Transferase 18 U/L (15-37); BUN Creatinine Ratio 43.6; Bilirubin Total 0.8 mg/dL (0.2-1.0); Calcium 8.1 mg/dL (8.5-10.1); Carbon Dioxide 28.8 mmol/L (21.0-32.0); Chloride 103 mmol/L (98-107); Estimated GFR (African America 58 (>=60); Estimated GFR (Non-African Ame 48 (>=60); Globulin 3.1 g/dL; Glucose 173 mg/dL (74-106); Potassium 3.4 mmol/L (3.5-5.1); Sodium 141 mmol/L (136-145); Total Protein 5.8 g/dL (6.4-8.2)
[2023-04-09] MEDS: NYSTATIN 500,000 UNIT/5 ML ORAL.SUSP 500000 UNIT PO ×3 (05:36→17:35)
[2023-04-09] MEDS: HYDRALAZINE HCL 25 MG TABLET PO (05:36)
[2023-04-09 05:42] LABS: Troponin I High Sensitivity 56.8 pg/mL (4.0-51.3)
[2023-04-09 05:46] LABS: Band Neutrophils Absolute 0.3 10^3/uL (0.0-0.3); Lymphocytes Absolute Manual 0.62 10^3/uL (1.20-3.80); Monocytes Absolute Manual 0.31 10^3/uL (0.30-0.80); Segmented Neut Absolute Manual 29.76 10^3/uL (1.4-6.5)
[2023-04-09] MEDS: LEVALBUTEROL HCL 0.63 MG/3 ML VIAL.NEB IH ×4 (05:53→22:12)
[2023-04-09] MEDS: IPRATROPIUM BROMIDE 0.5 MG/2.5 ML VIAL.NEB IH ×4 (05:54→22:13)
--- NOTE | 2023-04-09 06:04 | RESP.RT ---
Increased to 5 lpm
--- NOTE | 2023-04-09 07:39 | XR_ITS ---
The [address] [address] Patient Name: MARK REYES MRN: [id number] date: 1945 Sex: F Assigned Patient Location: ICU Current Patient Location: ICU Accession/Order Number: [id number] Exam Date: 04/09/2023 07:58 Report Date: 04/09/2023 08:18 At the request of: TERESA GREWAL Procedure: XR chest 2V EXAMINATION: XR chest 2V HISTORY: hypoxia COMPARISON: XR chest 04/07/2023, 04/06/2023 FINDINGS: LUNGS: Diffuse infiltrates throughout the lungs without focal opacity or consolidation. VASCULATURE: No increased pulmonary vasculature. PLEURA: No pneumothorax, effusion, or pleural thickening. CARDIAC: No cardiomegaly or cardiac silhouette abnormality. MEDIASTINUM: No visible mass or adenopathy. BONES: No fracture or visible bone lesion. OTHER: Negative. XR/XR chest 2V IMPRESSION: 1. Persistent diffuse infiltrates bilaterally; slightly increased compared to 04/07/2023, but still improved compared to 04/06/2023. Electronically authenticated by: EUFEMIA SPENCE Date: 04/09/2023 08:18
--- NOTE | 2023-04-09 07:42 | P.PN_ITS ---
Progress Note: Subjective Subjective Interval history: Patient states she is feeling better. Breathing overall feels much improved to her. Exam Constitutional Vital Signs, click to edit/add: Last Vital Signs Temp 98.7 F 04/09/23 04:00 Pulse 93 H 04/09/23 07:30 Resp 18 04/09/23 05:54 BP 171/55 H 04/09/23 07:27 Pulse Ox 88 L 04/09/23 07:27 O2 Del Method Nasal Cannula 04/09/23 05:54 O2 Flow Rate 4 04/09/23 05:54 FiO2 45 04/07/23 06:09 Common normals: oriented x3, alert and well nourished General appearance: cooperative Orientation/consciousness: Yes awake HENMT Common normals: normocephalic, head/scalp atraumatic, hearing grossly normal bilaterally, external nose normal and moist oral mucous membranes Eye Common normals: PERRL, EOMs intact bilaterally, conjunctivae normal and no scleral icterus Alignment: alignment normal Eyelid: eyelids normal Neck & C-Spine Common normals: full ROM, supple and no JVD Thyroid: solitary palpable nodule on the left Chest Common normals: inspection of chest normal Chest: symmetrical chest wall rise Respiratory Common normals: normal respiratory effort, no retractions and no use of access ory muscles Effort & inspection: able to speak in complete sentences Auscultation: rales (Bases but definitely improved from previous days) and rhonchi (Definite improvement over previous day, still with rales in bases); no wheezes (EE scattered throughout) Cardio Common normals: no JVD, regular rate, S1 normal heart sound, S2 normal heart sound, no gallops, no clicks, no rub and peripheral pulses 2+ throughout Rhythm: abnormal rhythm irregularly irregular Heart sounds: murmur (HSM 2/6) GI Common normals: Normal to inspection, nondistended, normoactive bowel sounds present, soft to palpation, non-tender, no hepatosplenomegaly, no masses and no bruits Bladder/kidney exam: bladder normal to palpation Extremity Common normals: normal capillary refill and no pedal edema General: normal exam except as noted; no cyanosis Neuro [place] Coma Scale: GCS not evaluated Common normals: oriented x3, CN's II-XII intact bilaterally, moves all extremities, no focal motor deficits and no sensory deficits noted Sensorium/orientation: awake and alert Speech: speech normal Psych Common normals: mental status grossly normal, thought process normal, affect normal and activity/motor behavior normal Progress Note: Objective Labs Labs: Short CBC 04/09/23 Range/Units 03:38 WBC 31.0 H* (4.0-11.0) 10^3/uL Hgb 12.9 (12.0-16.0) g/dL Hct 39.9 (36.0-48.0) % Plt Count 316 (150-450) 10^3/uL BMP 04/09/23 03:38 Sodium 141 Potassium 3.4 L Chloride 103 Carbon Dioxide 28.8 BUN 48.0 H Creatinine 1.10 H Glucose 173 H Calcium 8.1 L Liver Function 04/09/23 Range/Units 03:38 Total Bilirubin 0.8 (0.2-1.0) mg/dL AST 18 (15-37) U/L ALT 25 (14-59) U/L Alkaline Phosphatase 88 (46-116) U/L Albumin 2.7 L (3.4-5.0) g/dL Progress Note: A&P Assessment and Plan (1) Acute hypoxemic respiratory failure: (2) Atrial fibrillation, new onset: (3) COPD with acute exacerbation: (4) Pulmonary edema: (5) COVID-19: (6) Hypokalemia: (7) HTN (hypertension): (8) Stroke: Plan Acute hypoxemic respiratory failure resulting in sepsis with multisystem organ failure(HEENT, cardiac, pulmonary, renal): Due to COVID-19 and acute combined congestive heart failure with bilateral pneumonia. Echocardiogram shows elevated right-sided pressures. Her white blood cell count is back elevated today. BNP also elevated. Will repeat chest x-ray. Repeat diuretics with Lasix had 1 dose of Aldactone. Also had a bump her O2 level from 4 to 5 L. Try to find results of sputum that was obtained a few days ago. Sample may have been lost. If no fevers and patient overall improving will not change antibiotics today. Repeat labs later today. Chest x-ray does show increased fluid compared to yesterday. Try patient on IPV treatments Atrial fibrillation, new onset: Echo report-see above, so far remains in sinus rhythm converting 04/06/2023-so far maintaining, good grades as well. Increase metoprolol for better blood pressure control and to watch for bradycardia COPD with acute exacerbation secondary to [id number] aerosol treatments Pulmonary edema: Somewhat worse today. Based on chest x-ray and lab work. Continue with Lasix add 1 dose of Aldactone, add isosorbide for better afterload reduction, increase metoprolol for better blood pressure control COVID-19:-Outside of range for treating specifically for COVID-19. 10 to 40% FiO2 so we will try patient on nasal cannula. Hypokalemia: Monitor daily and supplement HTN (hypertension): Keep with hydralazine, increase metoprolol and added Imdur Moderate protein calorie malnutrition-diet supplement Hyperglycemia secondary to above treatment-will improve with decreased dosing of steroids Hypokalemia-supplement likely secondary to the diuresis Mild constipation-add lactulose as needed Thrush secondary to steroids-oral nystatin Patient overall again feels improved, she feels her strength will be good enough to go home once medically she is more stable?
--- NOTE | 2023-04-09 07:50 | CM.NOTE ---
Rounds made with Dr. Felix. Repeat CXR today and attempt to obtain a Sputum C&S. No plan for discharge today.
[2023-04-09] MEDS: AMLODIPINE BESYLATE 5 MG TABLET 10 MG PO (08:21)
[2023-04-09] MEDS: PROSTAT 15 GM PROTEIN/100 CAL 30 ML LIQUID PACKET PO (08:21)
[2023-04-09] MEDS: FUROSEMIDE 40 MG/4 ML VIAL IVP ×2 (08:21→21:10)
[2023-04-09] MEDS: POTASSIUM CHLORIDE 10 MEQ ER TABLET 20 MEQ PO ×3 (08:21→21:08)
[2023-04-09] MEDS: CLOPIDOGREL BISULFATE 75 MG TABLET PO (08:22)
[2023-04-09] MEDS: CHOLECALCIFEROL (VITAMIN D3) 125 MCG/5000 UNIT TABLET PO (08:22)
[2023-04-09] MEDS: LIOTHYRONINE SODIUM 5 MCG TABLET PO (08:22)
[2023-04-09] MEDS: ASCORBIC ACID 500 MG TABLET PO (08:22)
[2023-04-09] MEDS: CETIRIZINE HCL 10 MG TABLET 20 MG PO (08:22)
[2023-04-09] MEDS: APIXABAN 5 MG TABLET PO ×2 (08:22→21:07)
[2023-04-09] MEDS: METOPROLOL TARTRATE 25 MG TABLET 50 MG PO ×2 (08:22→21:07)
[2023-04-09] MEDS: L. ACIDOPHILUS/L.BULGARICUS 1 PACKET GRAN.PACK PO (08:22)
[2023-04-09] MEDS: LISINOPRIL 20 MG TABLET 40 MG PO (08:22)
[2023-04-09] MEDS: SERTRALINE HCL 50 MG TABLET 25 MG PO (08:23)
[2023-04-09] MEDS: ZINC GLUCONATE 50 MG TABLET PO (08:23)
[2023-04-09] MEDS: PREDNISONE 20 MG TABLET PO ×2 (08:23→21:08)
--- NOTE | 2023-04-09 10:30 | CM.NOTE ---
New DME form put on pt's chart for discharge. Pt would need new order faxed if home oxygen is increased from her 2L NC that she wears at home.
[2023-04-09] MEDS: BUDESONIDE 0.5 MG/2 ML AMPULE NEB IH ×2 (11:26→22:13)
[2023-04-09] MEDS: SODIUM CHLORIDE 0.9% INHALATION 3 ML NEB IH (11:27)
[2023-04-09] MEDS: ISOSORBIDE MONONITRATE 30 MG TAB.ER.24H PO (11:44)
--- NOTE | 2023-04-09 11:44 | RESP.RT ---
IPV done instead of pep
[2023-04-09 13:49] LABS: Basophils Absolute Auto 0.1 10^3/uL (0.0-0.1); Basophils Percent Auto 0.2 % (0.2-2.0); Hematocrit 38.8 % (36.0-48.0); Hemoglobin 12.9 g/dL (12.0-16.0); Immature Granulocytes Abs Auto 0.34 10^3/uL (0.00-0.03); Immature Granulocytes Pct Auto 1.1 % (0.0-0.5); Lymphocytes Absolute Auto 0.6 10^3/uL (1.2-3.8); Lymphocytes Percent Auto 1.8 % (20.5-60.0); Mean Corpuscular HGB Conc 33.2 g/dL (29.9-35.2); Mean Corpuscular Hemoglobin 30.1 pg (26.7-34.0); Mean Corpuscular Volume 90.7 fL (81.0-99.0); Mean Platelet Volume 10.1 fL (9.5-13.5); Monocytes Absolute Auto 1.1 10^3/uL (0.3-0.8); Monocytes Percent Auto 3.5 % (1.7-12.0); Neutrophils Absolute Auto 29.3 10^3/uL (1.4-6.5); Neutrophils Percent Auto 93.4 % (43.0-75.0); Platelet Count 273 10^3/uL (150-450); Red Blood Count 4.28 10^6/uL (4.20-5.40); Red Cell Distribution Width 13.9 % (11.0-15.0)
[2023-04-09 13:53] LABS: White Blood Count 31.4 10^3/uL (4.0-11.0)
[2023-04-09 14:16] LABS: Anion Gap 14.7; BUN Creatinine Ratio 44.7; Calcium 7.9 mg/dL (8.5-10.1); Carbon Dioxide 28.1 mmol/L (21.0-32.0); Chloride 102 mmol/L (98-107); Estimated GFR (African America 56 (>=60); Estimated GFR (Non-African Ame 46 (>=60); Glucose 186 mg/dL (74-106); Potassium 3.8 mmol/L (3.5-5.1); Sodium 141 mmol/L (136-145)
[2023-04-09] MEDS: HYDRALAZINE HCL 25 MG TABLET 50 MG PO ×2 (14:27→21:08)
[2023-04-09] MEDS: CIPROFLOXACIN IN 5 % DEXTROSE 400 MG/200 ML PIGGYBACK 200 MG IV (15:05)
[2023-04-09] MEDS: SODIUM CHLORIDE 0.9% INHALATION 3 ML NEB 6 ML IH (17:08)
--- NOTE | 2023-04-09 17:29 | RESP.RT ---
SpO2 90%n on 5 LPM NC using finger probe, 95% using ear probe, decreased to 4 LPM
[2023-04-09] MEDS: ATORVASTATIN CALCIUM 40 MG TABLET 80 MG PO (21:08)
[2023-04-09] MEDS: PANTOPRAZOLE SODIUM 40 MG VIAL IV (21:10)
[2023-04-10] VITALS (24 sets, daily range): BP systolic 129–178; BP diastolic 64–75; PULSE 58–90; RESP 16–20; TEMP 36.4–36.8; O2SAT 87–95
[2023-04-10] MEDS: CIPROFLOXACIN IN 5 % DEXTROSE 400 MG/200 ML PIGGYBACK 200 MG IV (03:20)
[2023-04-10 04:16] LABS: Basophils Absolute Auto 0.1 10^3/uL (0.0-0.1); Basophils Percent Auto 0.2 % (0.2-2.0); Hematocrit 38.5 % (36.0-48.0); Hemoglobin 12.4 g/dL (12.0-16.0); Immature Granulocytes Abs Auto 0.29 10^3/uL (0.00-0.03); Lymphocytes Absolute Auto 0.7 10^3/uL (1.2-3.8); Lymphocytes Percent Auto 2.2 % (20.5-60.0); Mean Corpuscular HGB Conc 32.2 g/dL (29.9-35.2); Mean Corpuscular Hemoglobin 29.5 pg (26.7-34.0); Mean Corpuscular Volume 91.4 fL (81.0-99.0); Mean Platelet Volume 10.2 fL (9.5-13.5); Monocytes Percent Auto 3.2 % (1.7-12.0); Neutrophils Absolute Auto 28.2 10^3/uL (1.4-6.5); Neutrophils Percent Auto 93.4 % (43.0-75.0); Platelet Count 258 10^3/uL (150-450); Red Blood Count 4.21 10^6/uL (4.20-5.40); Red Cell Distribution Width 13.5 % (11.0-15.0); White Blood Count 30.1 10^3/uL (4.0-11.0)
[2023-04-10] MEDS: IPRATROPIUM BROMIDE 0.5 MG/2.5 ML VIAL.NEB IH ×4 (04:36→22:00)
[2023-04-10] MEDS: LEVALBUTEROL HCL 0.63 MG/3 ML VIAL.NEB IH ×4 (04:36→22:00)
[2023-04-10 04:42] LABS: Alanine Aminotransferase 25 U/L (14-59); Albumin Globulin Ratio 0.9; Albumin Level 2.5 g/dL (3.4-5.0); Alkaline Phosphatase 84 U/L (46-116); Anion Gap 10.1; Aspartate Amino Transferase 22 U/L (15-37); BUN Creatinine Ratio 44.7; Calcium 7.9 mg/dL (8.5-10.1); Carbon Dioxide 29.7 mmol/L (21.0-32.0); Chloride 102 mmol/L (98-107); Estimated GFR (African America 56 (>=60); Estimated GFR (Non-African Ame 46 (>=60); Globulin 2.8 g/dL; Glucose 182 mg/dL (74-106); Potassium 3.8 mmol/L (3.5-5.1); Sodium 138 mmol/L (136-145); Total Protein 5.3 g/dL (6.4-8.2)
[2023-04-10] MEDS: POTASSIUM CHLORIDE 10 MEQ ER TABLET 20 MEQ PO ×2 (05:00→14:14)
[2023-04-10] MEDS: HYDRALAZINE HCL 25 MG TABLET 50 MG PO ×3 (05:00→22:53)
[2023-04-10] MEDS: NYSTATIN 500,000 UNIT/5 ML ORAL.SUSP 500000 UNIT PO ×3 (05:01→17:21)
[2023-04-10] MEDS: APIXABAN 5 MG TABLET PO ×2 (09:30→21:06)
[2023-04-10] MEDS: FUROSEMIDE 40 MG/4 ML VIAL IVP ×2 (09:30→21:05)
[2023-04-10] MEDS: SERTRALINE HCL 50 MG TABLET 25 MG PO (09:30)
[2023-04-10] MEDS: AMLODIPINE BESYLATE 5 MG TABLET 10 MG PO (09:30)
[2023-04-10] MEDS: PREDNISONE 20 MG TABLET PO (09:31)
[2023-04-10] MEDS: LIOTHYRONINE SODIUM 5 MCG TABLET PO (09:31)
[2023-04-10] MEDS: METOPROLOL TARTRATE 25 MG TABLET 50 MG PO ×2 (09:31→21:06)
[2023-04-10] MEDS: CLOPIDOGREL BISULFATE 75 MG TABLET PO (09:31)
[2023-04-10] MEDS: CETIRIZINE HCL 10 MG TABLET 20 MG PO (09:31)
[2023-04-10] MEDS: LISINOPRIL 20 MG TABLET 40 MG PO (09:31)
[2023-04-10] MEDS: ISOSORBIDE MONONITRATE 30 MG TAB.ER.24H PO (09:32)
--- NOTE | 2023-04-10 10:00 | PT.DAILY ---
Physical Therapy Daily Note PT Daily Note/Assess Start: 04/07/23 11:01 Freq: Status: Active Protocol: Document 04/10/23 09:40 LOTTIE (Rec: 04/10/23 10:00 LOTTIE [id number]) Visit Not Completed Visit Not Completed Visit Not Completed Due to: Other Other Reason Visit Not Completed Patient reports up and down in room independently, feels that she has no need for PT. No balance issues or feeling weak. Doing so much better. Hoping MD will DC me home today. Physical Therapy Daily Note/Assessment Time In/Time Out Time In 09:40 Time Out 09:40 GG. Functional Abilities and Goals-Complete for Swing Bed Patients Only [id number]. Self-Care [id number]. Mobility
[2023-04-10] MEDS: BUDESONIDE 0.5 MG/2 ML AMPULE NEB IH ×2 (11:04→22:00)
--- NOTE | 2023-04-10 11:23 | RESP.RT ---
Titrated down to 5L
--- NOTE | 2023-04-10 11:30 | PM.PN ---
Progress Note: Subjective Subjective Interval history: Patient slow to improve. Remains on 6 LPM and decreased BS. Continues to have SOB with exertion but overall feels much better. Afebrile. Mild cough but no sputum. Normal appetite and no emesis or diarrhea. No chest pain or palpitations. Exam Constitutional Vital Signs, click to edit/add: Last Vital Signs Temp 97.7 F 04/10/23 05:16 Pulse 61 04/10/23 11:08 Resp 20 04/10/23 05:16 BP 165/75 H 04/10/23 09:31 Pulse Ox 94 L 04/10/23 11:08 O2 Del Method Nasal Cannula 04/10/23 11:08 O2 Flow Rate 6 04/10/23 11:08 FiO2 45 04/07/23 06:09 Documenting provider has reviewed patient's vital signs: yes Common normals: no apparent distress, oriented x3 and alert HENMT Common normals: normocephalic Eye Common normals: PERRL and EOMs intact bilaterally Respiratory Auscultation: wheezes and diminished lung sounds Cardio Common normals: no gallops, no murmurs and no rub Rhythm: abnormal rhythm irregularly irregular GI Common normals: Normal to inspection, nondistended, normoactive bowel sounds present and non-tender Extremity Common normals: no pedal edema Progress Note: Objective Labs Labs: Short CBC 04/09/23 04/10/23 Range/Units 12:45 03:53 WBC 31.4 H* 30.1 H (4.0-11.0) 10^3/uL Hgb 12.9 12.4 (12.0-16.0) g/dL Hct 38.8 38.5 (36.0-48.0) % Plt Count 273 258 (150-450) 10^3/uL BMP 04/09/23 04/10/23 12:45 03:53 Sodium 141 138 Potassium 3.8 3.8 Chloride 102 102 Carbon Dioxide 28.1 29.7 BUN 51.0 H 51.0 H Creatinine 1.14 H 1.14 H Glucose 186 H 182 H Calcium 7.9 L 7.9 L Liver Function 04/10/23 Range/Units 03:53 Total Bilirubin 1.0 (0.2-1.0) mg/dL AST 22 (15-37) U/L ALT 25 (14-59) U/L Alkaline Phosphatase 84 (46-116) U/L Albumin 2.5 L (3.4-5.0) g/dL Progress Note: A&P Assessment and Plan (1) Acute hypoxemic respiratory failure: (2) COVID-19: (3) COPD with acute exacerbation: (4) Acute on chronic heart failure with preserved ejection fraction (HFpEF): (5) Atrial fibrillation, new onset: (6) HTN (hypertension): (7) Peripheral vascular disease: (8) Hypokalemia: Plan Feels better but remains on 6 LPM and WBC remains elevated. BS continue to be diminished with wheezing. Stop cipro and clindamycin and start levaquin. Stop oral prednisone and start solu-medrol. Continue breathing treatments. Wean O2 as tolerated and increase ambulation. Add aldactone for CHF.
[2023-04-10] MEDS: SPIRONOLACTONE 25 MG TABLET PO (11:40)
[2023-04-10] MEDS: LOPERAMIDE HCL 2 MG CAPSULE PO (12:09)
[2023-04-10] MEDS: LEVOFLOXACIN IN DEXTROSE 5 % 750 MG/150 ML IV.SOLN 100 MG IV (12:09)
[2023-04-10] MEDS: METHYLPREDNISOLONE SOD SUCC PF 125 MG/2 ML VIAL 60 MG IVP ×2 (12:09→17:21)
--- NOTE | 2023-04-10 17:12 | RESP.RT ---
titrated down to 3L. SpO2 held at 90-91%
[2023-04-10] MEDS: PANTOPRAZOLE SODIUM 40 MG VIAL IV (17:21)
[2023-04-10] MEDS: ATORVASTATIN CALCIUM 40 MG TABLET 80 MG PO (22:54)
[2023-04-11] VITALS (10 sets, daily range): BP systolic 128; BP diastolic 62; PULSE 59–83; RESP 18; TEMP 36.4; O2SAT 91–95
[2023-04-11] MEDS: METHYLPREDNISOLONE SOD SUCC PF 125 MG/2 ML VIAL 60 MG IVP ×3 (00:08→11:52)
[2023-04-11] MEDS: LEVALBUTEROL HCL 0.63 MG/3 ML VIAL.NEB IH (04:51)
[2023-04-11] MEDS: IPRATROPIUM BROMIDE 0.5 MG/2.5 ML VIAL.NEB IH (04:51)
[2023-04-11 05:24] LABS: Hematocrit 36.2 % (36.0-48.0); Hemoglobin 12.1 g/dL (12.0-16.0); Mean Corpuscular HGB Conc 33.4 g/dL (29.9-35.2); Mean Corpuscular Hemoglobin 30.4 pg (26.7-34.0); Mean Platelet Volume 10.2 fL (9.5-13.5); Platelet Count 205 10^3/uL (150-450); Red Blood Count 3.98 10^6/uL (4.20-5.40); Red Cell Distribution Width 13.4 % (11.0-15.0); White Blood Count 24.5 10^3/uL (4.0-11.0)
[2023-04-11] MEDS: HYDRALAZINE HCL 25 MG TABLET 50 MG PO (05:50)
[2023-04-11 05:52] LABS: Alanine Aminotransferase 24 U/L (14-59); Albumin Globulin Ratio 0.9; Albumin Level 2.5 g/dL (3.4-5.0); Alkaline Phosphatase 84 U/L (46-116); Anion Gap 12.8; Aspartate Amino Transferase 21 U/L (15-37); BUN Creatinine Ratio 42.4; Calcium 8.3 mg/dL (8.5-10.1); Chloride 103 mmol/L (98-107); Estimated GFR (African America 54 (>=60); Estimated GFR (Non-African Ame 45 (>=60); Globulin 2.8 g/dL; Glucose 161 mg/dL (74-106); Potassium 3.8 mmol/L (3.5-5.1); Sodium 139 mmol/L (136-145); Total Protein 5.3 g/dL (6.4-8.2)
[2023-04-11 06:08] LABS: Band Neutrophils Absolute 0.7 10^3/uL (0.0-0.3); Lymphocytes Absolute Manual 0.24 10^3/uL (1.20-3.80); Segmented Neut Absolute Manual 23.52 10^3/uL (1.4-6.5)
[2023-04-11] MEDS: AMLODIPINE BESYLATE 5 MG TABLET 10 MG PO (08:54)
[2023-04-11] MEDS: FUROSEMIDE 40 MG/4 ML VIAL IVP (08:54)
[2023-04-11] MEDS: ISOSORBIDE MONONITRATE 30 MG TAB.ER.24H PO (08:55)
[2023-04-11] MEDS: SPIRONOLACTONE 25 MG TABLET PO (08:55)
[2023-04-11] MEDS: METOPROLOL TARTRATE 25 MG TABLET 50 MG PO (08:55)
[2023-04-11] MEDS: CETIRIZINE HCL 10 MG TABLET 20 MG PO (08:55)
[2023-04-11] MEDS: APIXABAN 5 MG TABLET PO (08:55)
[2023-04-11] MEDS: LIOTHYRONINE SODIUM 5 MCG TABLET PO (08:55)
[2023-04-11] MEDS: CLOPIDOGREL BISULFATE 75 MG TABLET PO (08:55)
[2023-04-11] MEDS: SERTRALINE HCL 50 MG TABLET 25 MG PO (08:55)
[2023-04-11] MEDS: LISINOPRIL 20 MG TABLET 40 MG PO (08:55)
--- NOTE | 2023-04-11 11:10 | P.DS_ITS ---
DS: Providers Provider Date of admission: 04/04/23 19:23 Primary care physician: TESHA RED Consults: 04/05/23 07:23 Consult to Cardiology Routine Reason for consultation: New onset A-fib, CHF Has provider been notified: No 04/06/23 08:36 Occupational Therapy Eval and Treat Routine Reason for consultation: Only if needed for Rehab Has provider been notified: No Physical Therapy Eval and Treat Routine Reason for consultation: Eval and Treat Has provider been notified: No DS: Diagnosis Discharge Diagnosis (1) Acute hypoxemic respiratory failure: (2) COVID-19: (3) COPD with acute exacerbation: (4) Acute on chronic heart failure with preserved ejection fraction (HFpEF): (5) Atrial fibrillation, new onset: (6) HTN (hypertension): (7) Peripheral vascular disease: (8) Hypokalemia: DS: Summary Hospital Course Hospital Course: Reason for admission: See ER note and H&P for details. 77 y/o female to ER with SOB. Hospitalized about 2 weeks prior with Covid-19 and discharged home on 3 LPM. Completed prednisone and augmentin. Continued to have SOB. Mild cough but severe SOB with exertion. To ER and SpO2 57% on room air placed on high flow oxygen. Chest x-ray with fluid overload and labs normal. Admitted for treatment. Hospital course: Given IV lasix then bumex drip. Started cipro and clindamycin. History of COPD and noted decreased BS and started prednisone for exacerbation. Cardiology consulted. Echo showed normal EF 55-60% but diastolic dysfunction. Given additional bumex drips then changed to IV lasix. Weaned off high flow oxygen but continued to have hypoxia requiring 6 LPM. Continued to have chest tightness and WBC elevated. Changed to levaquin. Stopped prednisone and started IV solu-medrol. Patient slowly improved. Added aldactone. Able to wean oxygen and maintain normal SpO2 on 3 LPM. Less SOB but still wheezing. Ambulating around room. Afebrile and WBC decreased. Discharged home in stable condition. Will take prednisone tapered over 12 days and levaquin x 7 days. Continue aldactone and start lasix. Resume other home medication as directed. F/u with PCP in 1-2 weeks. Time Spent with Patient Time attestation: Total time spent providing and/or coordinating discharge services: Exam Constitutional Vital Signs, click to edit/add: Last Vital Signs Temp 97.6 F 04/11/23 05:52 Pulse 78 04/11/23 10:07 Resp 18 04/11/23 05:52 BP 128/62 04/11/23 05:52 Pulse Ox 91 L 04/11/23 05:52 O2 Del Method Nasal Cannula 04/11/23 05:52 O2 Flow Rate 3 04/11/23 05:52 FiO2 45 04/07/23 06:09 Documenting provider has reviewed patient's vital signs: yes Common normals: no apparent distress, oriented x3 and alert HENMT Common normals: normocephalic Eye Common normals: PERRL and EOMs intact bilaterally Respiratory Common normals: normal respiratory effort Auscultation: wheezes and diminished lung sounds (Improved from day prior) Cardio Common normals: no gallops, no murmurs and no rub Rhythm: abnormal rhythm irregularly irregular GI Common normals: Normal to inspection, nondistended, normoactive bowel sounds present and non-tender Extremity Common normals: no pedal edema DS: Data Data Completed and Pending Labs on day of discharge: Labs from last 24 hours 04/11/23 03:54 WBC 24.5 H RBC 3.98 L Hgb 12.1 Hct 36.2 MCV 91.0 MCH 30.4 MCHC 33.4 RDW 13.4 Plt Count 205 MPV 10.2 Seg Neuts % (Manual) 96.0 Band Neutrophils % 3.0 Lymphocytes % (Manual) 1.0 L Monocytes % (Manual) 0.0 L Eosinophils % (Manual) 0.0 L Basophils % (Manual) 0.0 L Neutrophils # (Manual) 23.52 H Band Neutrophils # 0.7 H Lymphocytes # (Manual) 0.24 L Monocytes # (Manual) 0.00 L Eosinophils # (Manual) 0.00 Basophils # (Manual) 0.00 Sodium 139 Potassium 3.8 Chloride 103 Carbon Dioxide 27.0 Anion Gap 12.8 BUN 50.0 H Creatinine 1.18 H Est GFR ( Amer) 54 L Est GFR (Non-Af Amer) 45 L BUN/Creatinine Ratio 42.4 Glucose 161 H Calcium 8.3 L Total Bilirubin 1.0 AST 21 ALT 24 Alkaline Phosphatase 84 NT-Pro-B Natriuret Pep 2640.0 H* Total Protein 5.3 L Albumin 2.5 L Globulin 2.8 Albumin/Globulin Ratio 0.9 Preliminary micro results at discharge 04/04/23 16:18 Blood Culture Result 1 - Preliminary Blood Staphylococcus epidermidis 04/06/23 06:05 - Preliminary Blood NO GROWTH AT 36-48 HOURS. FINAL TO FOLLOW. 04/06/23 06:00 Blood Culture Result 1 - Preliminary Blood NO GROWTH AT 36-48 HOURS. FINAL TO FOLLOW. Discharge Plan Discharge Disposition: Home, Self-Care Condition: Good Discharge Medications: New spironolactone 25 mg tablet 25 mg PO DAILY Qty: 30 0RF furosemide 40 mg tablet 40 mg PO DAILY Qty: 30 0RF prednisone 10 mg tablets,dose pack 10 mg PO DAILY Qty: 39 0RF Rx Instructions: 6 PO daily x 3 days, then 4 PO daily x 3 days, then 2 PO daily x 3 days, then 1 PO daily x 3 days levofloxacin 750 mg tablet 750 mg PO DAILY 7 Days Qty: 7 0RF Continued lisinopril 40 mg tablet 40 mg PO DAILY clopidogrel 75 mg tablet 75 mg PO DAILY sertraline 25 mg tablet 25 mg PO DAILY amlodipine 10 mg tablet 10 mg PO DAILY levalbuterol HCl 1.25 mg/3 mL solution for nebulization 1.25 mg INHALATION Q6H PRN (Reason: shortness of breath or wheezing) Trelegy Ellipta 100-62.5-25 mcg blister with device 1 inh INHALATION Q24H atorvastatin [Lipitor] 80 mg tablet 80 mg PO QPM bisoprolol fumarate 5 mg tablet 5 mg PO DAILY alendronate 70 mg tablet 70 mg PO QWEEK Activity: resume usual activities as tolerated Diet: advance to your usual diet Forms: Portal Instructions Follow Up Appointments: [facility] Cardiology at the [facility] Apr 26 2023 @1:20
== END 2023-04-11 12:55 | disposition home or self-care (01) | DRG 871 ==
LOC: ER 19:26 → ICU 19:31 → MS 04-09 15:10
PROVIDERS: Family Medicine; Internal Medicine; Nurse Practitioner; Admitting Provider Family Medicine; Emergency Provider Emergency Medicine; PCP Internal Medicine; Visit Provider Family Medicine
DX: A41.9 Sepsis, unspecified organism (principal); I11.0 Hypertensive heart disease with heart failure; I50.33 Acute on chronic diastolic (congestive) heart failure; J96.21 Acute and chronic respiratory failure with hypoxia; U07.1 COVID-19; J18.9 Pneumonia, unspecified organism; J44.1 Chronic obstructive pulmonary disease with (acute) exacerbation; J44.0 Chronic obstructive pulmonary disease with (acute) lower respiratory infection; E44.0 Moderate protein-calorie malnutrition; R65.20 Severe sepsis without septic shock; I48.91 Unspecified atrial fibrillation; E87.6 Hypokalemia; R73.9 Hyperglycemia, unspecified; B37.9 Candidiasis, unspecified; F32.A Depression, unspecified; K59.00 Constipation, unspecified; I73.9 Peripheral vascular disease, unspecified; E78.00 Pure hypercholesterolemia, unspecified; Z87.891 Personal history of nicotine dependence; Z99.81 Dependence on supplemental oxygen; Z85.3 Personal history of malignant neoplasm of breast; Z90.12 Acquired absence of left breast and nipple; Z79.02 Long term (current) use of antithrombotics/antiplatelets; Z79.899 Other long term (current) drug therapy; Z88.1 Allergy status to other antibiotic agents; Z88.2 Allergy status to sulfonamides; Z95.828 Presence of other vascular implants and grafts; Z86.73 Personal history of transient ischemic attack (TIA), and cerebral infarction without residual deficits; Z68.27 Body mass index [BMI] 27.0-27.9, adult
CPT/HCPCS: 36415; 36600; 51702; 71045; 71046; 71275; 80048; 80053; 80202; 82728; 82805; 83605; 83735; 83880; 84439; 84443; 84481; 84484; 85025; 85027; 85378; 85610; 85730; 86140; 87040; 87070; 87081; 87106; 87150; 87186; 87205; 87811; 93005; 93306; 94640; 94660; 94667; 94668; 94761; 94799; 96365; 96366; 96367; 96368; 96372; 96375; 96376; 97161; 97165; 97530; 99285; J2920; J2930; J3370; J3480; Q3014; Q9967

== ENCOUNTER 2023-04-13 13:06 | Observation (INO) | payer MEDICARE, SELFPAY ==
[2023-04-13] VITALS (8 sets, daily range): BP systolic 148; BP diastolic 65; PULSE 52–102; RESP 12–20; TEMP 36.8; O2SAT 83–93; BMI 27.3; BMI 26.9
--- NOTE | 2023-04-13 13:14 | ECG_ITS ---
The [facility] Test Date: 2023-04-13 Pat Name: MARK REYES Department: Room: - Gender: Female Invas Tech: : 1945 Requested By: TESHA RED Order Number: [id number] Reading MD: NEY MILLER Measurements Intervals [place] Rate: 97 P: -[id number] NV: -[id number] QRS: -9 QRSD: 82 T: 226 QT: 342 QTc: 396 Interpretive Statements [id number] Atrial fibrillation with aberrant conduction, or ventricular premature complexes ST/T wave changes, can't exclude inferolateral ischemia 9150 abnormal ECG Electronically Signed On 04-14-2023 7:16:45 EST by NEY MILLER
--- NOTE | 2023-04-13 13:14 | XR_ITS ---
The [address] [address] Patient Name: MARK REYES MRN: [id number] date: 1945 Sex: F Assigned Patient Location: ED.MAIN Current Patient Location: ED.MAIN Accession/Order Number: [id number] Exam Date: 04/13/2023 13:20 Report Date: 04/13/2023 13:57 At the request of: GINA STEVEN Procedure: XR chest 1V EXAM: XR chest 1V at 1333 hours HISTORY: SOB COMPARISON: 04/09/2023 TECHNIQUE: AP upright portable chest x-ray FINDINGS: The heart is not enlarged and the vasculature is not distended. Mild prominence of the interstitial markings persist diffusely throughout the lungs, with mild overall improvement. No focal infiltrate, effusion or pneumothorax is identified. The osseous structures are grossly intact. XR/XR chest 1V IMPRESSION: Mild prominence of the interstitial markings persist throughout the lungs with mild overall improvement. There is no evidence of a focal infiltrate. Electronically authenticated by: DONIS CRUZ Date: 04/13/2023 13:57
--- NOTE | 2023-04-13 13:15 | ED.SOB1 ---
HPI - SOB/Dyspnea General Chief Complaint: Upper Respiratory Infection Stated Complaint: SHORTNESS OF BREATH Time Seen by Provider: 04/13/23 13:11 History of Present Illness HPI Narrative: [age] year old female presents for shortness of breath. She has a history of chronic obstructive pulmonary disease and recently had Covid, a few weeks ago. She had been admitted then and then was admitted last week as well with new onset atrial fibrillation. She states she just wants to go home and have hospice because she's giving up and doesn't have the energy to fight anymore. Related Data Home Medications Medication Instructions Recorded Confirmed amlodipine 10 mg tablet 10 mg PO DAILY 04/04/23 04/13/23 clopidogrel 75 mg tablet 75 mg PO DAILY 04/04/23 04/13/23 fluticasone fur. 100 mcg-umeclid 1 inh inhalation Q24H 04/04/23 04/13/23 62.5 mcg-vilant 25 mcg inhalat.powder (Trelegy Ellipta) levalbuterol HCl 1.25 mg/3 mL 1.25 mg inhalation Q6H PRN 04/04/23 04/05/23 solution for nebulization shortness of breath or wheezing lisinopril 40 mg tablet 40 mg PO DAILY 04/04/23 04/13/23 sertraline 25 mg tablet 25 mg PO DAILY 04/04/23 04/13/23 alendronate 70 mg tablet 70 mg PO QWEEK 04/05/23 04/13/23 atorvastatin 80 mg tablet (Lipitor) 80 mg PO QPM 04/05/23 04/13/23 bisoprolol fumarate 5 mg tablet 5 mg PO DAILY 04/05/23 04/13/23 Previous Rx's Medication Instructions Recorded furosemide 40 mg tablet 40 mg PO DAILY #30 tabs 04/11/23 levofloxacin 750 mg tablet 750 mg PO DAILY 7 days #7 tabs 04/11/23 prednisone 10 mg tablets in a dose 10 mg PO DAILY #39 ea 04/11/23 pack spironolactone 25 mg tablet 25 mg PO DAILY #30 tabs 04/11/23 Allergies Allergy/AdvReac Type Severity Reaction Status Date / Time acetaminophen [From [place]] Allergy Intermediate Verified 04/13/23 13:13 nitrofurantoin Allergy Intermediate Verified 04/13/23 13:13 [From Macrobid] pentazocine [From [place]] Allergy Intermediate Verified 04/13/23 13:13 Sulfa (Sulfonamide Allergy Intermediate Verified 04/13/23 13:13 Antibiotics) tetracycline Allergy Intermediate Verified 04/13/23 13:13 erythromycin base Allergy Mild Verified 04/13/23 13:13 sulfamethoxazole Allergy Mild Verified 04/13/23 13:13 [From Bactrim] trimethoprim [From Bactrim] Allergy Mild Verified 04/13/23 13:13 Review of Systems ROS Narrative A ten point review of systems is negative except as noted above. [facility] Medical History (Updated 04/13/23 @ 17:31 by Enrique Bhatia MD) Breast cancer ?C50.919 - Malignant neoplasm of unspecified site of unspecified female breast (ICD-10) COPD (chronic obstructive pulmonary disease) ?J44.9 - Chronic obstructive pulmonary disease, unspecified (ICD-10) Elevated cholesterol ?E78.00 - Pure hypercholesterolemia, unspecified (ICD-10) History of home oxygen therapy (Unknown) ?Z99.81 - Dependence on supplemental oxygen (ICD-10) Internal carotid artery stent present (Unknown) ?Z95.828 - Presence of other vascular implants and grafts (ICD-10) Occlusion and stenosis of bilateral carotid arteries ?I65.23 - Occlusion and stenosis of bilateral carotid arteries (ICD-10) Pulmonary edema ?J81.1 - Chronic pulmonary edema (ICD-10) Stroke ?I63.9 - Cerebral infarction, unspecified (ICD-10) Subclavian arterial stenosis ?I77.1 - Stricture of artery (ICD-10) Surgical History H/O mastectomy ?Z90.10 - Acquired absence of unspecified breast and nipple (ICD-10) Exam Narrative Exam Narrative: Nurses note and vital signs reviewed and patient is not hypoxic. General: The patient appears in no apparent distress. Patient is resting comfortably on cart. Skin: Warm, dry, no pallor noted. There is no rash noted. Head: Normocephalic, atraumatic Eye: Normal conjunctiva, no drainage Ears, Nose, Mouth, and Throat: oral mucosa is somewhat dry. Nares patent. Cardiovascular: irregularly irregular Respiratory: Patient is in no distress, no accessory muscle use, lungs are clear to auscultation, no wheezing, rales or rhonchi Back: non-tender GI: soft and nontender Musculoskeletal: The patient has no evidence of calf tenderness, no pitting edema, symmetrical pulses noted bilaterally Neurological: A&O, normal speech Psychiatric: Cooperative Constitutional Vital Signs, click to edit/add: Last Vital Signs Temp 98.2 F 04/13/23 13:13 Pulse 102 H 04/13/23 15:30 Resp 15 04/13/23 15:30 BP 148/65 H 04/13/23 13:39 Pulse Ox 83 L 04/13/23 15:30 O2 Del Method Nasal Cannula 04/13/23 13:13 O2 Flow Rate 4 04/13/23 13:39 Course Vital Signs Vital signs: Vital Signs Temperature 98.2 F 04/13/23 13:13 Pulse Rate 94 H 04/13/23 13:13 Respiratory Rate 20 04/13/23 13:13 Blood Pressure 148/65 H 04/13/23 13:13 Pulse Oximetry 86 L 04/13/23 13:13 Oxygen Delivery Method Nasal Cannula 04/13/23 13:13 Oxygen Delivery Flow Rate 4 04/13/23 13:13 Temperature 98.2 F 04/13/23 13:13 Pulse Rate 102 H 04/13/23 15:30 Respiratory Rate 15 04/13/23 15:30 Blood Pressure 148/65 H 04/13/23 13:39 Pulse Oximetry 83 L 04/13/23 15:30 Oxygen Delivery Method Nasal Cannula 04/13/23 13:13 Oxygen Delivery Flow Rate 4 04/13/23 13:39 MDM - SOB/Dyspnea MDM Narrative Medical decision making narrative: the patient presented to the emergency department requesting hospice. She states she just wants to go home because she doesn't have the energy to fight her health problems any longer. She states she wants to be kept comfortable. She was found to have elevated so essentially unchanged troponin twice. We discussed possible cardiac workup and she states she doesn't want to go through any of that. She states she doesn't want to have any more blood drawn. We have contacted hospice and they have seen her here and we are in the process of arranging hospice for home and that should be available tomorrow. She'll be admitted for observation overnight so that hospice can be set up. WBC is elevated at thirty-two thousand but this appears to be her baseline. Differential Diagnosis Differential diagnosis: Likely acute exacerbation of chronic obstructive airways disease, congestive heart failure and community acquired pneumonia Medical Records Attestation: I reviewed the patient's medical records. Lab Data Attestation: I reviewed the patient's lab results. Labs: Lab Results 04/13/23 04/13/23 04/13/23 Range/Units 13:24 13:30 14:34 WBC 32.6 H* (4.0-11.0) 10^3/uL RBC 4.35 (4.20-5.40) 10^6/uL Hgb 12.9 (12.0-16.0) g/dL Hct 39.6 (36.0-48.0) % MCV 91.0 (81.0-99.0) fL MCH 29.7 (26.7-34.0) pg MCHC 32.6 (29.9-35.2) g/dL RDW 13.2 (11.0-15.0) % Plt Count 173 (150-450) 10^3/uL MPV 10.8 (9.5-13.5) fL Seg Neuts % (Manual) 92.0 Lymphocytes % (Manual) 5.0 L (20.5-60.0) % Monocytes % (Manual) 3.0 (1.7-12.0) % Eosinophils % (Manual) 0.0 L (0.9-7.0) % Basophils % (Manual) 0.0 L (0.2-2.0) % Neutrophils # (Manual) 29.99 H (1.4-6.5) 10^3/uL Lymphocytes # (Manual) 1.63 (1.20-3.80) 10^3/uL Monocytes # (Manual) 0.97 H (0.30-0.80) 10^3/uL Eosinophils # (Manual) 0.00 (0.00-0.70) 10^3/uL Basophils # (Manual) 0.00 (0.00-0.10) 10^3/uL Sodium 139 (136-145) mmol/L Potassium 3.4 L (3.5-5.1) mmol/L Chloride 102 (98-107) mmol/L Carbon Dioxide 26.5 (21.0-32.0) mmol/L Anion Gap 13.9 BUN 45.0 H (7.0-18.0) mg/dL Creatinine 0.95 (0.55-1.02) mg/dL Est GFR ( Amer) >60 (>=60) Est GFR (Non-Af Amer) 57 L (>=60) BUN/Creatinine Ratio 47.4 Glucose 159 H (74-106) mg/dL Calcium 8.1 L (8.5-10.1) mg/dL Troponin I High Sens 340.3 H* 356.7 H* (4.0-51.3) pg/mL SARS-CoV-2 (PCR) Negative (NEGATIVE) Imaging Data Chest x-ray: Radiologist's impression: Procedure: XR chest 1V EXAM: XR chest 1V at 1333 hours HISTORY: SOB COMPARISON: 04/09/2023 TECHNIQUE: AP upright portable chest x-ray FINDINGS: The heart is not enlarged and the vasculature is not distended. Mild prominence of the interstitial markings persist diffusely throughout the lungs, with mild overall improvement. No focal infiltrate, effusion or pneumothorax is identified. The osseous structures are grossly intact. IMPRESSION: Mild prominence of the interstitial markings persist throughout the lungs with mild overall improvement. There is no evidence of a focal infiltrate. Electronically authenticated by: DONIS CRUZ Date: 04/13/2023 13:57 ECG Data Attestation: I personally reviewed and interpreted this ECG as follows: (EKG on my interpretation shows atrial fibrillation with PVCs. No ST segment elevation.) Discharge Plan Discharge Chief Complaint: Upper Respiratory Infection Clinical Impression: Generalized weakness Patient Disposition: Admitted as Observation Time of Disposition Decision: 17:31 Condition: Fair Prescriptions / Home Meds: No Action lisinopril 40 mg tablet 40 mg PO DAILY clopidogrel 75 mg tablet 75 mg PO DAILY sertraline 25 mg tablet 25 mg PO DAILY amlodipine 10 mg tablet 10 mg PO DAILY levalbuterol HCl 1.25 mg/3 mL solution for nebulization 1.25 mg INHALATION Q6H PRN (Reason: shortness of breath or wheezing) Trelegy Ellipta 100-62.5-25 mcg blister with device 1 inh INHALATION Q24H atorvastatin [Lipitor] 80 mg tablet 80 mg PO QPM bisoprolol fumarate 5 mg tablet 5 mg PO DAILY alendronate 70 mg tablet 70 mg PO QWEEK spironolactone 25 mg tablet 25 mg PO DAILY Qty: 30 0RF furosemide 40 mg tablet 40 mg PO DAILY Qty: 30 0RF prednisone 10 mg tablets,dose pack 10 mg PO DAILY Qty: 39 0RF Rx Instructions: 6 PO daily x 3 days, then 4 PO daily x 3 days, then 2 PO daily x 3 days, then 1 PO daily x 3 days levofloxacin 750 mg tablet 750 mg PO DAILY 7 Days Qty: 7 0RF Stand Alone Forms: Portal Instructions Referrals: TESHA RED [Primary Care Provider] - 1 week
[2023-04-13 13:41] LABS: Hematocrit 39.6 % (36.0-48.0); Hemoglobin 12.9 g/dL (12.0-16.0); Mean Corpuscular HGB Conc 32.6 g/dL (29.9-35.2); Mean Corpuscular Hemoglobin 29.7 pg (26.7-34.0); Mean Platelet Volume 10.8 fL (9.5-13.5); Platelet Count 173 10^3/uL (150-450); Red Blood Count 4.35 10^6/uL (4.20-5.40); Red Cell Distribution Width 13.2 % (11.0-15.0)
[2023-04-13 13:52] LABS: SARS-CoV-2 Ag NEGATIVE (NEGATIVE)
[2023-04-13 13:58] LABS: Anion Gap 13.9; BUN Creatinine Ratio 47.4; Calcium 8.1 mg/dL (8.5-10.1); Carbon Dioxide 26.5 mmol/L (21.0-32.0); Chloride 102 mmol/L (98-107); Estimated GFR (African America >60 (>=60); Estimated GFR (Non-African Ame 57 (>=60); Glucose 159 mg/dL (74-106); Potassium 3.4 mmol/L (3.5-5.1); Sodium 139 mmol/L (136-145)
[2023-04-13 13:59] LABS: Troponin I High Sensitivity 340.3 pg/mL (4.0-51.3)
[2023-04-13 14:10] LABS: White Blood Count 32.6 10^3/uL (4.0-11.0)
[2023-04-13 14:28] LABS: Lymphocytes Absolute Manual 1.63 10^3/uL (1.20-3.80); Monocytes Absolute Manual 0.97 10^3/uL (0.30-0.80); Segmented Neut Absolute Manual 29.99 10^3/uL (1.4-6.5)
[2023-04-13 14:58] LABS: Troponin I High Sensitivity 356.7 pg/mL (4.0-51.3)
[2023-04-13] MEDS: MORPHINE SULFATE 4 MG/ML VIAL IM (15:22)
--- NOTE | 2023-04-13 15:34 | CM.NOTE ---
Called to ED for patient interest in Hospice. Entered room and patient alert and oriented with cousin Audi at bedside. Pt. voiced she wanted to go home with Hospice. Patient and cousin both voice interest in [facility]. I contacted intake department at [facility] and they will be sending a nurse out to our emergency room between 4:15 and 4:[address]pm. Dr. Bhatia is aware. Clinic Licensed Practical Nurse aware to fax facesheet, progress notes and hospice order to .
--- NOTE | 2023-04-13 15:42 | PC.NURSE ---
executive manager speaks with patient regarding hospice consult, hospice consult ordered. [facility] to be at facility around [phone]
--- NOTE | 2023-04-13 17:06 | PC.NURSE ---
Patient and Family are speaking with Nurse from [facility] at this time.
--- NOTE | 2023-04-13 18:36 | PC.NURSE ---
Per Patients request. No IV, No Vital signs, and no daily oral medications. She only wants comfort medications.
[2023-04-14] MEDS: IPRATROPIUM/ALBUTEROL SULFATE 3 ML AMPUL.NEB IH (04:48)
[2023-04-14] MEDS: MORPHINE SULFATE 2 MG/ML SYRINGE 1 MG IM (05:43)
--- NOTE | 2023-04-14 10:47 | CM.NOTE ---
Rounding with Dr. Pelletier. Patient's plan is to go home today with Hospice. Pt. states Hospice will be here within the hour and I will be going home. No other needs identified.
--- NOTE | 2023-04-14 11:01 | CM.NOTE ---
[facility] called and nurse and pt's son will be here at 11:30. Pt's son will transport pt to home. RN notified.
[2023-04-14 11:29] LABS: SARS-CoV-2 NAA DETECTED (NOT DETECTE)
--- NOTE | 2023-04-14 11:54 | PM.HP ---
H&P: HPI History of Present Illness Chief complaint: SOB Narrative: 77 y/o female to ER with SOB and weakness. History of COPD and CHF and declining since had hospitalized with Covid-19 03/28. Patient spent 3 days in [place] then admitted 04/04-04/11 with COPD and CHF. Since home continued to decline. Severe SOB and fatigue with exertion. Severe weakness and no energy. Patient states she's tired of fighting and wants hospice. To ER and troponin elevated. Contacted hospice and arranging for home with hospice. Admitted for observation. Review of Systems ROS Constitutional Denies: fever, chills or night sweats Cardiovascular Denies: chest pain, palpitations or edema Respiratory Reports: shortness of breath and cough; Denies: wheezing Gastrointestinal Denies: abdominal pain, nausea, vomiting or diarrhea Genitourinary Denies: painful urination [facility] Medical History (Updated 04/14/23 @ 09:22 by Carloz Pelletier MD) Acute on chronic heart failure with preserved ejection fraction (HFpEF) ?I50.33 - Acute on chronic diastolic (congestive) heart failure (ICD-10) Breast cancer ?C50.919 - Malignant neoplasm of unspecified site of unspecified female breast (ICD-10) COPD with acute exacerbation ?J44.1 - Chronic obstructive pulmonary disease with (acute) exacerbation (ICD-10) COVID-19 ?U07.1 - COVID-19 (ICD-10) Elevated cholesterol ?E78.00 - Pure hypercholesterolemia, unspecified (ICD-10) History of home oxygen therapy (Unknown) ?Z99.81 - Dependence on supplemental oxygen (ICD-10) Hypokalemia ?E87.6 - Hypokalemia (ICD-10) Internal carotid artery stent present (Unknown) ?Z95.828 - Presence of other vascular implants and grafts (ICD-10) Occlusion and stenosis of bilateral carotid arteries ?I65.23 - Occlusion and stenosis of bilateral carotid arteries (ICD-10) Pulmonary edema ?J81.1 - Chronic pulmonary edema (ICD-10) Stroke ?I63.9 - Cerebral infarction, unspecified (ICD-10) Subclavian arterial stenosis ?I77.1 - Stricture of artery (ICD-10) Surgical History H/O mastectomy ?Z90.10 - Acquired absence of unspecified breast and nipple (ICD-10) Social History Gender Identity: female Meds Home Medications and Allergies Home Medications Medication Instructions Recorded Confirmed Type amlodipine 10 mg tablet 10 mg PO DAILY 04/04/23 04/13/23 History clopidogrel 75 mg tablet 75 mg PO DAILY 04/04/23 04/13/23 History fluticasone fur. 100 mcg-umeclid 1 inh inhalation Q24H 04/04/23 04/13/23 History 62.5 mcg-vilant 25 mcg inhalat.powder (Trelegy Ellipta) levalbuterol HCl 1.25 mg/3 mL 1.25 mg inhalation Q6H PRN 04/04/23 04/05/23 History solution for nebulization shortness of breath or wheezing lisinopril 40 mg tablet 40 mg PO DAILY 04/04/23 04/13/23 History sertraline 25 mg tablet 25 mg PO DAILY 04/04/23 04/13/23 History alendronate 70 mg tablet 70 mg PO QWEEK 04/05/23 04/13/23 History atorvastatin 80 mg tablet (Lipitor) 80 mg PO QPM 04/05/23 04/13/23 History bisoprolol fumarate 5 mg tablet 5 mg PO DAILY 04/05/23 04/13/23 History furosemide 40 mg tablet 40 mg PO DAILY #30 tabs 04/11/23 04/13/23 Rx levofloxacin 750 mg tablet 750 mg PO DAILY 7 days #7 tabs 04/11/23 04/13/23 Rx prednisone 10 mg tablets in a dose 10 mg PO DAILY #39 ea 04/11/23 04/13/23 Rx pack spironolactone 25 mg tablet 25 mg PO DAILY #30 tabs 04/11/23 04/13/23 Rx Allergies Allergy/AdvReac Type Severity Reaction Status Date / Time acetaminophen [From [place]] Allergy Intermediate Verified 04/13/23 13:13 nitrofurantoin Allergy Intermediate Verified 04/13/23 13:13 [From Macrobid] pentazocine [From [place]] Allergy Intermediate Verified 04/13/23 13:13 Sulfa (Sulfonamide Allergy Intermediate Verified 04/13/23 13:13 Antibiotics) tetracycline Allergy Intermediate Verified 04/13/23 13:13 erythromycin base Allergy Mild Verified 04/13/23 13:13 sulfamethoxazole Allergy Mild Verified 04/13/23 13:13 [From Bactrim] trimethoprim [From Bactrim] Allergy Mild Verified 04/13/23 13:13 Exam Constitutional Vital Signs, click to edit/add: Last Vital Signs Temp 98.2 F 04/13/23 13:13 Pulse 102 H 04/13/23 15:30 Resp 12 04/13/23 18:26 BP 148/65 H 04/13/23 13:39 Pulse Ox 83 L 04/13/23 15:30 O2 Del Method Nasal Cannula 04/13/23 20:40 O2 Flow Rate 3 04/13/23 20:40 Documenting provider has reviewed patient's vital signs: yes Common normals: no apparent distress, oriented x3 and alert HENMT Common normals: normocephalic Eye Common normals: PERRL Respiratory Common normals: normal respiratory effort and clear to auscultation bilaterally Cardio Common normals: regular rate, regular rhythm, no gallops, no murmurs and no rub GI Common normals: Normal to inspection, nondistended, normoactive bowel sounds present and non-tender Extremity Common normals: no pedal edema Results Labs Labs: Short CBC 04/13/23 Range/Units 13:30 WBC 32.6 H* (4.0-11.0) 10^3/uL Hgb 12.9 (12.0-16.0) g/dL Hct 39.6 (36.0-48.0) % Plt Count 173 (150-450) 10^3/uL BMP 04/13/23 13:30 Sodium 139 Potassium 3.4 L Chloride 102 Carbon Dioxide 26.5 BUN 45.0 H Creatinine 0.95 Glucose 159 H Calcium 8.1 L Assessment and Plan Assessment and Plan (1) COPD (chronic obstructive pulmonary disease): (2) Chronic heart failure with preserved ejection fraction (HFpEF): (3) Acute hypoxemic respiratory failure: (4) Generalized weakness: (5) Atrial fibrillation, new onset: (6) HTN (hypertension): (7) Peripheral vascular disease: Plan Patient attempting to go home with hospice. Hospice accepted and arranging for things at home including bed. Patient discharged home with hospice in stable condition.
--- NOTE | 2023-04-14 15:17 | CM.NOTE ---
Medicare Outpatient Observation Notice discussed with pt, pt verbalizes understanding and signs paper. Original given to pt and copy placed on pt's chart.
== END 2023-04-14 11:47 | disposition hospice, home (50) ==
LOC: ER 17:31 → MS 18:14
PROVIDERS: Admitting Provider Family Medicine; Emergency Provider Emergency Medicine; PCP Internal Medicine; Visit Provider Family Medicine
DX: R53.1 Weakness (principal); J96.01 Acute respiratory failure with hypoxia; J44.9 Chronic obstructive pulmonary disease, unspecified; I11.0 Hypertensive heart disease with heart failure; I50.32 Chronic diastolic (congestive) heart failure; I48.91 Unspecified atrial fibrillation; I73.9 Peripheral vascular disease, unspecified; E78.00 Pure hypercholesterolemia, unspecified; R79.89 Other specified abnormal findings of blood chemistry; Z99.81 Dependence on supplemental oxygen; Z86.16 Personal history of COVID-19; Z79.899 Other long term (current) drug therapy; Z85.3 Personal history of malignant neoplasm of breast; Z95.828 Presence of other vascular implants and grafts; Z86.73 Personal history of transient ischemic attack (TIA), and cerebral infarction without residual deficits; Z90.10 Acquired absence of unspecified breast and nipple; Z20.822 Contact with and (suspected) exposure to COVID-19
CPT/HCPCS: 36415; 71045; 80048; 84484; 85027; 87635; 87811; 93005; 94640; 96372; 96374; 99285; G0378